=== PATIENT | male | born 1960 | race Caucasian/White ===

== ENCOUNTER 2018-09-06 12:25 | Inpatient (IN) | payer BC, MEDICAID ==
[2018-09-06] MEDS ORDERED: Albuterol/Ipratropium 3.0-0.5 MG/3 ML Neb Soln NEB ONE (13:22)
[2018-09-06] MEDS ORDERED: Sodium Chloride 0.9% 10 ML Syringe FLUSH PRN (13:25)
--- NOTE | 2018-09-06 13:32 | EDM.PDOC ---
ED HPI GENERAL MEDICAL PROBLEM - General Chief Complaint: Respiratory Problem Stated Complaint: COPD SENT BY CLINIC Time Seen by Provider: 09/06/18 13:27 Source of Information: Reports: Patient History Limitations: Reports: No Limitations - History of Present Illness INITIAL COMMENTS - FREE TEXT/NARRATIVE: 58-year-old male presents for evaluation and treatment shortness of breath. Patient states he has been feeling short of breath the last 6 weeks. Reports severe dyspnea on exertion. States that he lives in a camper and can hardly move to and from his camper without being short of breath. He reports associated symptoms of decreased energy and decreased appetite. States that he is not coughing much. He denies any fevers, chills, headaches and bodyaches. He states that he has appreciated swelling in the bilateral feet. He also reports some chest tightness but identifies the area more in the right upper quadrant of the abdomen. patient reports that he has a past medical history of COPD. It sounds that this is self diagnosis. Only on albuterol as needed for COPD. Sees Dr. Zambrano as a primary care provider but has seen him recently. Duration: Intermittent Feet Pain Score (Numeric/FACES): 5 - Related Data Allergies Allergy/AdvReac Type Severity Reaction Status Date / Time No Known Allergies Allergy Verified 09/06/18 12:38 Home Meds: Home Meds Albuterol Sulfate [Proair Hfa] 2 puff INH 6XDAY PRN 09/06/18 [History] Past Medical History Cardiovascular History: Reports: Hypertension Respiratory History: Reports: COPD, SOB Gastrointestinal History: Reports: None Genitourinary History: Reports: None Musculoskeletal History: Reports: Neck Pain, Chronic Neurological History: Reports: None Psychiatric History: Reports: None Endocrine/Metabolic History: Reports: None Hematologic History: Reports: None Immunologic History: Reports: None Oncologic (Cancer) History: Reports: None Dermatologic History: Reports: None - Infectious Disease History Infectious Disease History: Reports: None - Past Surgical History HEENT Surgical History: Reports: Oral Surgery Respiratory Surgical History: Reports: None Other Male Surgeries/Procedures: decrease in urine for past week Social & Family History - Family History Family Medical History: Noncontributory Respiratory: Reports: COPD Musculoskeletal: Reports: Muscular Dystrophy Neurological: Reports: Parkinson's Endocrine/Metabolic: Reports: Diabetes, type II - Tobacco Use Smoking Status *Q: Current Every Day Smoker Years of Tobacco use: 48 Packs/Tins Daily: 1 - Caffeine Use Caffeine Use: Reports: Coffee, Tea - Recreational Drug Use Recreational Drug Use: Yes Drug Use in Last 12 Months: No Recreational Drug Type: Reports: Cocaine, Marijuana/Hashish ED ROS GENERAL - Review of Systems Review Of Systems: See Below Constitutional: Reports: Fatigue. Denies: Fever, Chills Respiratory: Reports: Shortness of Breath. Denies: Cough, Sputum Cardiovascular: Reports: Chest Pain (Reports chest tightness), Dyspnea on Exertion, Edema GI/Abdominal: Denies: Nausea, Vomiting ED EXAM, GENERAL - Physical Exam Exam: See Below Exam Limited By: No Limitations General Appearance: Alert, WD/WN, No Apparent Distress, Other (Cyanosis appreciate the nose upon arrival) Nose: Other (Cyanosis appreciated) Throat/Mouth: Normal Inspection, Normal Lips, Normal Oropharynx, Normal Voice, No Airway Compromise, Other (Poor dentition) Neck: Normal Inspection Respiratory/Chest: Decreased Breath Sounds (throughout) Cardiovascular: No Murmur, Tachycardia Peripheral Pulses: 2+: Dorsalis Pedis (L), Dorsalis Pedis (R) GI/Abdominal: Normal Bowel Sounds, Soft, Non-Tender, Distended (Ascites present) Neurological: Alert, Oriented, Normal Cognition Psychiatric: Normal Affect, Normal Mood Skin Exam: Warm, Dry, Normal Color EKG INTERPRETATION EKG Date: 09/06/18 Time: 13:33 Rhythm: NSR Rate (Beats/Min): 95 Toxey: RAD-Right Toxey Deviation P-Wave: Present QRS: Normal ST-T: Normal QT: Normal EKG Interpretation Comments: NSR at 95 bpm. Left atrial enlargement. RAD (133 degrees). P wave inversion V1. Decreased voltage and precordial limb leads. T wave inversion II, III and AVF- can not rule out inferior wall ischemia. QTc is markedly prolonged. Reviewed by myself and Dr. Sahu. Course - Vital Signs Last Recorded V/S: Last Vital Signs Temp 98.4 F 09/06/18 20:00 Pulse 90 09/06/18 18:13 Resp 27 H 09/06/18 20:00 BP 128/110 H 09/06/18 20:00 Pulse Ox 92 L 09/06/18 20:06 - Orders/Labs/Meds Orders: Active Orders 24 hr Category Date Time Status RT Aerosol Therapy [RC] ASDIRECTED Care 09/06/18 13:22 Active Sodium Chloride 0.9% [Normal Saline] 1,000 ml Med 09/06/18 14:15 Active IV ASDIRECTED Sodium Chloride 0.9% [Normal Saline] 100 ml Med 09/06/18 14:15 Active IV ASDIRECTED Sodium Chloride 0.9% [Saline Flush] Med 09/06/18 13:25 Active 10 ml FLUSH ASDIRECTED PRN Peripheral IV Insertion Adult [OM.PC] Routine Oth 09/06/18 13:25 Ordered EKG 12 Lead [EK] Stat Ther 09/06/18 13:22 Ordered Medication Orders Albuterol (Proventil Neb Soln) 2.5 mg NEB Q2H PRN PRN Reason: Dyspnea Last Admin: 09/06/18 20:05 Dose: 2.5 mg Albuterol/Ipratropium (Duoneb 3.0-0.5 Mg/3 Ml) 3 ml NEB Q4HRRT [facility] Captopril (Capoten) 6.25 mg PO Q8H [facility] Last Admin: 09/06/18 19:37 Dose: 6.25 mg Enoxaparin Sodium (Lovenox) 40 mg SUBCUT DAILY [facility] Sodium Chloride (Normal Saline) 100 mls @ 60 mls/hr IV ASDIRECTED [facility] Last Admin: 09/06/18 14:26 Dose: 60 mls/hr Sodium Chloride (Normal Saline) 1,000 mls @ 100 mls/hr IV ASDIRECTED [facility] Last Admin: 09/06/18 14:36 Dose: 100 mls/hr Ceftriaxone Sodium 1 gm/ (Sodium Chloride) 100 mls @ 200 mls/hr IV Q24H [facility] Last Admin: 09/06/18 19:48 Dose: 200 mls/hr Melatonin (Melatonin) 6 mg PO BEDTIME PRN PRN Reason: Insomnia Miscellaneous Information (Remove Patch) 1 ea TRDERM DAILY [facility] Nicotine (Habitrol) 21 mg TRDERM DAILY [facility] Last Admin: 09/06/18 19:42 Dose: Not Given Ondansetron HCl (Zofran Odt) 4 mg PO Q4H PRN PRN Reason: nausea, able to take PO Sodium Chloride (Saline Flush) 10 ml FLUSH ASDIRECTED PRN PRN Reason: Keep Vein Open Last Admin: 09/06/18 13:59 Dose: 10 ml Labs: Laboratory Tests 09/06/18 09/06/18 09/06/18 Range/Units 12:40 12:40 12:40 WBC 14.44 H (4.23-9.07) K/mm3 RBC 6.59 H (4.63-6.08) M/mm3 Hgb 21.5 H (13.7-17.5) gm/L Hct 74 H (40.1-51.0) % MCV 103.3 H (79.0-92.2) fl MCH 32.6 H (25.7-32.2) pg MCHC 31.6 L (32.2-35.5) g/dl RDW Std Deviation 63.6 H (35.1-43.9) fL Plt Count 203 (163-337) K/mm3 MPV 11.7 (9.4-12.3) fl Neutrophils % (Manual) 61 H (40-60) % Band Neutrophils % 0 (0-10) % Lymphocytes % (Manual) 22 (20-40) % Atypical Lymphs % 0 % Monocytes % (Manual) 16 H (2-10) % Eosinophils % (Manual) 0 L (0.8-7.0) % Basophils % (Manual) 1 (0.2-1.2) Platelet Estimate Adequate Polychromasia 2+ moderate Anisocytosis 2+ moderate Macrocytosis 2+ moderate RBC Morph Comment Abnormal PT (9.5-12.1) SECONDS INR D-Dimer, Quantitative 1.61 H (0.19-0.50) mg/L Puncture Site ABG pH (7.35-7.45) ABG pCO2 (35.0-45.0) mmHg ABG pO2 (80.0-100.0) mmHg ABG HCO3 (22.0-26.0) meq/L ABG O2 Saturation (96.0-97.0) % ABG Base Excess (-2-2.0) Jose Angel Test O2 Delivery Device Oxygen Flow Rate FiO2 (21.00-100.00) % Sodium 143 (136-145) mEq/L Potassium 4.9 (3.5-5.1) mEq/L Chloride 102 (98-107) mEq/L Carbon Dioxide 32 (21-32) mEq/L Anion Gap 13.9 (5-15) BUN 21 H (7-18) mg/dL Creatinine 1.3 (0.7-1.3) mg/dL Est Cr Clr Drug Dosing 58.46 mL/min Estimated GFR (MDRD) 56 (>60) mL/min BUN/Creatinine Ratio 16.2 (14-18) Glucose 119 H (74-106) mg/dL Calcium 9.8 (8.5-10.1) mg/dL Iron (65-175) ug/dL TIBC (100-400) ug/dL % Saturation (20-55) % Transferrin (202-364) mg/dL Total Bilirubin 1.0 (0.2-1.0) mg/dL AST 38 H (15-37) U/L ALT 46 (16-63) U/L Alkaline Phosphatase 104 (46-116) U/L CK-MB (CK-2) 4.2 H (0-3.6) ng/ml Troponin I < 0.017 (0.00-0.056) ng/mL NT-Pro-B Natriuret Pep (0-125) pg/mL Total Protein 7.3 (6.4-8.2) g/dl Albumin 3.8 (3.4-5.0) g/dl Globulin 3.5 gm/dL Albumin/Globulin Ratio 1.1 (1-2) 09/06/18 09/06/18 09/06/18 Range/Units 12:40 12:40 13:49 WBC (4.23-9.07) K/mm3 RBC (4.63-6.08) M/mm3 Hgb (13.7-17.5) gm/L Hct (40.1-51.0) % MCV (79.0-92.2) fl MCH (25.7-32.2) pg MCHC (32.2-35.5) g/dl RDW Std Deviation (35.1-43.9) fL Plt Count (163-337) K/mm3 MPV (9.4-12.3) fl Neutrophils % (Manual) (40-60) % Band Neutrophils % (0-10) % Lymphocytes % (Manual) (20-40) % Atypical Lymphs % % Monocytes % (Manual) (2-10) % Eosinophils % (Manual) (0.8-7.0) % Basophils % (Manual) (0.2-1.2) Platelet Estimate Polychromasia Anisocytosis Macrocytosis RBC Morph Comment PT (9.5-12.1) SECONDS INR D-Dimer, Quantitative (0.19-0.50) mg/L Puncture Site Lt radial ABG pH 7.31 L (7.35-7.45) ABG pCO2 68.6 H (35.0-45.0) mmHg ABG pO2 54.0 L (80.0-100.0) mmHg ABG HCO3 33.8 H (22.0-26.0) meq/L ABG O2 Saturation 82.7 L (96.0-97.0) % ABG Base Excess 3.9 H (-2-2.0) Jose Angel Test Positive O2 Delivery Device Nasal cannula Oxygen Flow Rate 4.0 FiO2 0.00 L (21.00-100.00) % Sodium (136-145) mEq/L Potassium (3.5-5.1) mEq/L Chloride (98-107) mEq/L Carbon Dioxide (21-32) mEq/L Anion Gap (5-15) BUN (7-18) mg/dL Creatinine (0.7-1.3) mg/dL Est Cr Clr Drug Dosing mL/min Estimated GFR (MDRD) (>60) mL/min BUN/Creatinine Ratio (14-18) Glucose (74-106) mg/dL Calcium (8.5-10.1) mg/dL Iron 73 (65-175) ug/dL TIBC 443 H (100-400) ug/dL % Saturation 16 L (20-55) % Transferrin 354 (202-364) mg/dL Total Bilirubin (0.2-1.0) mg/dL AST (15-37) U/L ALT (16-63) U/L Alkaline Phosphatase (46-116) U/L CK-MB (CK-2) (0-3.6) ng/ml Troponin I (0.00-0.056) ng/mL NT-Pro-B Natriuret Pep 5029 H (0-125) pg/mL Total Protein (6.4-8.2) g/dl Albumin (3.4-5.0) g/dl Globulin gm/dL Albumin/Globulin Ratio (1-2) 09/06/18 Range/Units 14:09 WBC (4.23-9.07) K/mm3 RBC (4.63-6.08) M/mm3 Hgb (13.7-17.5) gm/L Hct (40.1-51.0) % MCV (79.0-92.2) fl MCH (25.7-32.2) pg MCHC (32.2-35.5) g/dl RDW Std Deviation (35.1-43.9) fL Plt Count (163-337) K/mm3 MPV (9.4-12.3) fl Neutrophils % (Manual) (40-60) % Band Neutrophils % (0-10) % Lymphocytes % (Manual) (20-40) % Atypical Lymphs % % Monocytes % (Manual) (2-10) % Eosinophils % (Manual) (0.8-7.0) % Basophils % (Manual) (0.2-1.2) Platelet Estimate Polychromasia Anisocytosis Macrocytosis RBC Morph Comment PT 16.6 H (9.5-12.1) SECONDS INR 1.54 D-Dimer, Quantitative (0.19-0.50) mg/L Puncture Site ABG pH (7.35-7.45) ABG pCO2 (35.0-45.0) mmHg ABG pO2 (80.0-100.0) mmHg ABG HCO3 (22.0-26.0) meq/L ABG O2 Saturation (96.0-97.0) % ABG Base Excess (-2-2.0) Jose Angel Test O2 Delivery Device Oxygen Flow Rate FiO2 (21.00-100.00) % Sodium (136-145) mEq/L Potassium (3.5-5.1) mEq/L Chloride (98-107) mEq/L Carbon Dioxide (21-32) mEq/L Anion Gap (5-15) BUN (7-18) mg/dL Creatinine (0.7-1.3) mg/dL Est Cr Clr Drug Dosing mL/min Estimated GFR (MDRD) (>60) mL/min BUN/Creatinine Ratio (14-18) Glucose (74-106) mg/dL Calcium (8.5-10.1) mg/dL Iron (65-175) ug/dL TIBC (100-400) ug/dL % Saturation (20-55) % Transferrin (202-364) mg/dL Total Bilirubin (0.2-1.0) mg/dL AST (15-37) U/L ALT (16-63) U/L Alkaline Phosphatase (46-116) U/L CK-MB (CK-2) (0-3.6) ng/ml Troponin I (0.00-0.056) ng/mL NT-Pro-B Natriuret Pep (0-125) pg/mL Total Protein (6.4-8.2) g/dl Albumin (3.4-5.0) g/dl Globulin gm/dL Albumin/Globulin Ratio (1-2) Meds: Medications Generic Name Dose Route Start Last Admin Trade Name Freq PRN Reason Stop Dose Admin Albuterol 2.5 mg 09/06/18 18:20 09/06/18 20:05 Proventil Neb Soln NEB 2.5 mg Q2H PRN Administration Dyspnea Albuterol/Ipratropium 3 ml 09/06/18 22:00 Duoneb 3.0-0.5 Mg/3 Ml NEB Q4HRRT [facility] Captopril 6.25 mg 09/06/18 18:30 09/06/18 19:37 Capoten PO 6.25 mg Q8H [facility] Administration Enoxaparin Sodium 40 mg 09/07/18 09:00 Lovenox SUBCUT DAILY [facility] Sodium Chloride 100 mls @ 60 mls/hr 09/06/18 14:15 09/06/18 14:26 Normal Saline IV 60 mls/hr ASDIRECTED [facility] Administration Sodium Chloride 1,000 mls @ 100 mls/hr 09/06/18 14:15 09/06/18 14:36 Normal Saline IV 100 mls/hr ASDIRECTED [facility] Administration Ceftriaxone Sodium 1 gm/ 100 mls @ 200 mls/hr 09/06/18 20:00 09/06/18 19:48 Sodium Chloride IV 200 mls/hr Q24H [facility] Administration Melatonin 6 mg 09/06/18 19:46 Melatonin PO BEDTIME PRN Insomnia Miscellaneous Information 1 ea 09/07/18 09:00 Remove Patch TRDERM DAILY [facility] Nicotine 21 mg 09/06/18 19:00 09/06/18 19:42 Habitrol TRDERM Not Given DAILY [facility] Ondansetron HCl 4 mg 09/06/18 18:15 Zofran Odt PO Q4H PRN nausea, able to take PO Sodium Chloride 10 ml 09/06/18 13:25 09/06/18 13:59 Saline Flush FLUSH 10 ml ASDIRECTED PRN Administration Keep Vein Open Discontinued Medications Generic Name Dose Route Start Last Admin Trade Name Freq PRN Reason Stop Dose Admin Albuterol/Ipratropium 3 ml 09/06/18 13:22 09/06/18 13:39 Duoneb 3.0-0.5 Mg/3 Ml NEB 09/06/18 13:23 3 ml ONETIME ONE Administration Ceftriaxone Sodium 1 gm 09/06/18 18:45 Rocephin IM Q24H [facility] Furosemide 40 mg 09/06/18 14:15 09/06/18 14:37 Lasix IVPUSH 09/06/18 14:16 40 mg NOW ONE Administration Iohexol 75 ml 09/06/18 14:06 09/06/18 14:26 Omnipaque IVPUSH 09/06/18 14:07 75 ml ONETIME ONE Administration Pneumococcal Polyvalent Vaccine 0.5 ml 09/06/18 17:48 09/06/18 19:45 Pneumovax 23 IM 09/06/18 17:49 Not Given .ONCE ONE Sodium Chloride 10 ml 09/06/18 14:06 09/06/18 14:26 Saline Flush FLUSH 09/06/18 14:07 10 ml ONETIME ONE Administration - Radiology Interpretation Free Text/Narrative:: Chest: Two views of the chest were obtained. Comparison: Prior chest CT study of 10/14/15 and chest x-ray 08/11/12. Areas of atelectasis are felt to be present within the right mid lung. Lungs are hyperinflated which are felt compatible with an element of emphysematous change. Equivocal small right-sided pleural effusion versus pleural thickening. Heart is slightly enlarged. Tortuous thoracic aorta is seen. Impression: 1. Probable atelectasis within the right mid lung. 2. Emphysematous change. 3. Other findings which are most likely incidental as described above. CT chest Technique: Multiple axial sections through the chest were obtained. Intravenous contrast was utilized. Study has been performed as a pulmonary angiogram protocol. Findings: Small filling defects are seen on the axial view within the distal right main pulmonary artery and adjacent segmental branch. This is believed to be artifact as these are poorly seen on other projections. No filling defects are seen to indicate pulmonary embolism. Mediastinum and hilar region show no adenopathy or mass. Ascending aorta is slightly aneurysmal at 3.9 cm. Very small pericardial effusion is seen. Small right sided pleural effusion is seen. Right ventricle appears somewhat prominent in size as well as right atria. Difficult to exclude elevated right heart pressures. Main pulmonary arteries are also slightly prominent in size. Bullous change is noted within both lower lungs, worse on the left side. Scattered areas of parenchymal change is noted within the right upper and right lower lung as well as left base most likely due to areas of scarring. Slight fibrosis is noted within the right lung base. Impression: 1. Slightly prominent size of the main pulmonary arteries as well as right heart raising the possibility of elevated right heart pressures. Etiology not seen. 2. No definite findings of pulmonary embolism. 3. Bullous change within both lower lungs with scattered areas of scarring within the right upper and right lower lung and left lung base. 4. Small pericardial effusion. - Re-Assessments/Exams Free Text/Narrative Re-Assessment/Exam: 09/06/18 16:19 Patient's oxygen sats upon arrival in the ER were 66% on room air. Placed on nasal cannula 4 L and his oxygen sats have been in the low 90s with this. Case discussed with Dr. Sahu who recommended starting NS at 100 mils per hour with 40 IV Lasix for heart failure. Recommend discussing the case with hematology on-call to his severely elevated hemoglobin and hematocrit Spoke with Dr. Lafleur, radiologic technologist chief/oncologist [facility] in [place]. Recommended hydrating the gentleman as much as we are able to. Recommend a liter over a few hours and rechecking the CBC after that. Dr. Lafleur states we could consider phlebotomy at that time if still elevated. States that he is hesitant to recommend phlebotomy as we do not know the cause of the elevated hemoglobin and hematocrit is unknown at this time. Recommended checking iron levels to rule out hemochromatosis. Spoke with Dr. Sales, hospitalist on-call. He agrees to the admission. The patient will be admitted to the ICU. Diagnosis of congestive heart failure and elevated hemoglobin. Departure - Departure Time of Disposition: 16:15 Disposition: Admitted As Inpatient 64 Condition: Serious Clinical Impression: Congestive heart failure, Pleural effusion, Elevated hemoglobin, Elevated hematocrit, Hypoxia - Discharge Information *PRESCRIPTION DRUG MONITORING PROGRAM REVIEWED*: No *COPY OF PRESCRIPTION DRUG MONITORING REPORT IN PATIENT LAKSHMI: No - My Orders Last 24 Hours: My Active Orders 09/06/18 13:22 RT Aerosol Therapy [RC] ASDIRECTED EKG 12 Lead [EK] Stat 09/06/18 13:25 Sodium Chloride 0.9% [Saline Flush] 10 ml FLUSH ASDIRECTED PRN Peripheral IV Insertion Adult [OM.PC] Routine 09/06/18 14:15 Sodium Chloride 0.9% [Normal Saline] 1,000 ml IV ASDIRECTED Sodium Chloride 0.9% [Normal Saline] 100 ml IV ASDIRECTED - Assessment/Plan Last 24 Hours: My Active Orders 09/06/18 13:22 RT Aerosol Therapy [RC] ASDIRECTED EKG 12 Lead [EK] Stat 09/06/18 13:25 Sodium Chloride 0.9% [Saline Flush] 10 ml FLUSH ASDIRECTED PRN Peripheral IV Insertion Adult [OM.PC] Routine 09/06/18 14:15 Sodium Chloride 0.9% [Normal Saline] 1,000 ml IV ASDIRECTED Sodium Chloride 0.9% [Normal Saline] 100 ml IV ASDIRECTED
[2018-09-06] MEDS ORDERED: Iohexol 350 MG/ML 75 ML Bottle IVPUSH ONE (14:06)
[2018-09-06] MEDS ORDERED: Sodium Chloride 0.9% 10 ML Syringe FLUSH ONE (14:06)
[2018-09-06] MEDS ORDERED: Sodium Chloride 0.9% 100 ML IV SCH (14:15)
[2018-09-06] MEDS ORDERED: Sodium Chloride 0.9% 1,000 ML IV SCH (14:15)
[2018-09-06] MEDS ORDERED: Furosemide 40 MG/4 ML VIAL IVPUSH ONE (14:15)
--- NOTE | 2018-09-06 14:16 | CR ---
Chest: Two views of the chest were obtained. Comparison: Prior chest CT study of 10/14/15 and chest x-ray 08/11/12. Areas of atelectasis are felt to be present within the right mid lung. Lungs are hyperinflated which are felt compatible with an element of emphysematous change. Equivocal small right-sided pleural effusion versus pleural thickening. Heart is slightly enlarged. Tortuous thoracic aorta is seen. Impression: 1. Probable atelectasis within the right mid lung. 2. Emphysematous change. 3. Other findings which are most likely incidental as described above. Diagnostic code #3
--- NOTE | 2018-09-06 14:59 | CT ---
CT chest Technique: Multiple axial sections through the chest were obtained. Intravenous contrast was utilized. Study has been performed as a pulmonary angiogram protocol. Findings: Small filling defects are seen on the axial view within the distal right main pulmonary artery and adjacent segmental branch. This is believed to be artifact as these are poorly seen on other projections. No filling defects are seen to indicate pulmonary embolism. Mediastinum and hilar region show no adenopathy or mass. Ascending aorta is slightly aneurysmal at 3.9 cm. Very small pericardial effusion is seen. Small right sided pleural effusion is seen. Right ventricle appears somewhat prominent in size as well as right atria. Difficult to exclude elevated right heart pressures. Main pulmonary arteries are also slightly prominent in size. Bullous change is noted within both lower lungs, worse on the left side. Scattered areas of parenchymal change is noted within the right upper and right lower lung as well as left base most likely due to areas of scarring. Slight fibrosis is noted within the right lung base. Impression: 1. Slightly prominent size of the main pulmonary arteries as well as right heart raising the possibility of elevated right heart pressures. Etiology not seen. 2. No definite findings of pulmonary embolism. 3. Bullous change within both lower lungs with scattered areas of scarring within the right upper and right lower lung and left lung base. 4. Small pericardial effusion. Diagnostic code #3
[2018-09-06] MEDS ORDERED: Pneumococcal Polyvalent-23 Vaccine 0.5 ML SDV IM ONE (17:48)
[2018-09-06] MEDS ORDERED: Ondansetron 4 MG Tab.DIS PO PRN (18:15)
[2018-09-06] MEDS ORDERED: Albuterol 0.083% 2.5 MG/3 ML Neb Soln NEB PRN (18:20)
[2018-09-06] MEDS ORDERED: cefTRIAXone 1 GM Vial IM SCH (18:45)
[2018-09-06] MEDS: Nicotine 21 MG/24 Hr Patch TRDERM SCH (19:42)
[2018-09-06] MEDS: cefTRIAXone 1 GM in Sodium Chloride 0.9% 100 ML IV SCH (19:48)
--- NOTE | 2018-09-06 19:49 | PCM.HP ---
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 Patient states over the past 6 weeks he has had worsening shortness of breath and had difficulty even walking across the room to go to the bathroom. 2 weeks ago he developed right lower extremity edema and then it worsened to the left over the last 2 days. He has orthopnea but denies PND. He states that this episode really started back at [place]. He complains of productive light brown sputum. He denies any fever or chills. Denies any chest pain. He has an approximate [id number] history of tobacco. He lives in a camper. He drinks alcohol from one beer to 6 beers a day. Last alcohol intake was 2 days ago. He is seen by Dr. Zambrano, but last visit was over 2 years ago. He states he has been getting albuterol nebulizer solution and uses it in the evening. He uses Primatene and albuterol HFA for rescue. In the emergency room patient was given a nebulizer of albuterol and ipratropium bromide. Patient did seem to have some improvement. Lab work was performed and he was found to be severely polycythemic with a hemoglobin of 21.5. D-dimer was elevated at 1.67. Creatinine was 1.3 and BUN was 21. Otherwise normal electrolytes. AST was 38, ALT 46, alkaline phosphatase of 104, total bilirubin 1.0, troponin less than 0.017. BNP was elevated at 5029. Total iron binding capacity was slightly elevated at 443 with percent saturation of 16. ABG: PH 7.31, PCO2 68.6, PO2 54.0, HCO3 33.8, base excess 3.9 on 4 L nasal cannula Patient was initially given Lasix secondary to the elevated BNP, then he was started on normal saline at the suggestion of hematology. Concern was that if he does not have a decrease in his hemoglobin with adequate fluids he could have thrombotic complications. If hemoglobin does not decrease he may need phlebotomy per hematology. Onset of Symptoms: Reports: Gradual Feet Pain Score (Numeric/FACES): 5 - Related Data Allergies/Adverse Reactions: Allergies Allergy/AdvReac Type Severity Reaction Status Date / Time No Known Allergies Allergy Verified 09/06/18 12:38 Home Medications: Home Meds Albuterol Sulfate [Proair Hfa] 2 puff INH 6XDAY PRN 09/06/18 [History] Past Medical History Cardiovascular History: Reports: Hypertension Respiratory History: Reports: COPD, SOB Gastrointestinal History: Reports: None Genitourinary History: Reports: None Musculoskeletal History: Reports: Neck Pain, Chronic Neurological History: Reports: None Psychiatric History: Reports: None Endocrine/Metabolic History: Reports: None Hematologic History: Reports: None Immunologic History: Reports: None Oncologic (Cancer) History: Reports: None Dermatologic History: Reports: None - Infectious Disease History Infectious Disease History: Reports: None - Past Surgical History HEENT Surgical History: Reports: Oral Surgery Respiratory Surgical History: Reports: None Other Male Surgeries/Procedures: decrease in urine for past week Social & Family History - Family History Family Medical History: Noncontributory Respiratory: Reports: COPD Musculoskeletal: Reports: Muscular Dystrophy Neurological: Reports: Parkinson's Endocrine/Metabolic: Reports: Diabetes, type II - Tobacco Use Smoking Status *Q: Current Every Day Smoker Years of Tobacco use: 48 Packs/Tins Daily: 1 Used Tobacco, but Quit: No Tobacco Use Comment: okay with nicotine patch Second Hand Smoke Exposure: No - Caffeine Use Caffeine Use: Reports: Coffee, Tea - Alcohol Use Days Per Week of Alcohol Use: 7 Number of Drinks Per Day: 6 Total Drinks Per Week: 42 Date of Last Drink: 09/04/18 Time of Last Drink: 20:00 - Recreational Drug Use Recreational Drug Use: Yes Drug Use in Last 12 Months: No Recreational Drug Type: Reports: Cocaine, Marijuana/Hashish H&P Review of Systems - Review of Systems: Review Of Systems: ROS reveals no pertinent complaints other than HPI. Exam - Exam Exam: See Below - Vital Signs Vital Signs: Last Vital Signs Temp 97.2 F 09/06/18 18:13 Pulse 90 09/06/18 18:13 Resp 19 09/06/18 18:13 BP 136/111 H 09/06/18 19:37 Pulse Ox 94 L 09/06/18 18:49 Weight: 170 lb 12.8 oz - Exam Quality Assessment: Supplemental Oxygen General: Alert, Oriented HEENT: Conjunctiva Clear, EOMI, Hearing Intact, Mucosa Moist & Blende Neck: Supple, Trachea Midline Lungs: Decreased Breath Sounds, Other (Increased respiratory effort with increased respiratory rate). No: Rhonchi, Wheezing Cardiovascular: Regular Rate, Regular Rhythm GI/Abdominal Exam: Normal Bowel Sounds, Soft, Distended, Tender. No: Guarding, Rigid, Rebound Back Exam: Normal Inspection Extremities: Pedal Edema (Mild erythema the right foot with bilateral pedal edema extending up to mid calf) Skin: Warm, Dry Neurological: Cranial Nerves Intact Neuro Extensive - Mental Status: Alert, Oriented x3, Normal Mood/Affect Neuro Extensive - Motor, Sensory, Reflexes: CN II-XII Intact. No: Dysarthria Psychiatric: Alert, Normal Affect, Normal Mood - Patient Data Lab Results Last 24 hrs: Laboratory Results - last 24 hr 09/06/18 09/06/18 09/06/18 Range/Units 12:40 12:40 12:40 WBC 14.44 H (4.23-9.07) K/mm3 RBC 6.59 H (4.63-6.08) M/mm3 Hgb 21.5 H (13.7-17.5) gm/L Hct 74 H (40.1-51.0) % MCV 103.3 H (79.0-92.2) fl MCH 32.6 H (25.7-32.2) pg MCHC 31.6 L (32.2-35.5) g/dl RDW Std Deviation 63.6 H (35.1-43.9) fL Plt Count 203 (163-337) K/mm3 MPV 11.7 (9.4-12.3) fl Neut % (Auto) (34.0-67.9) % Lymph % (Auto) (21.8-53.1) % [place] % (Auto) (5.3-12.2) % Eos % (Auto) (0.8-7.0) Baso % (Auto) (0.1-1.2) % Neut # (Auto) (1.78-5.38) K/mm3 Lymph # (Auto) (1.32-3.57) K/mm3 [place] # (Auto) (0.30-0.82) K/mm3 Eos # (Auto) (0.04-0.54) K/mm3 Baso # (Auto) (0.01-0.08) K/mm3 Neutrophils % (Manual) 61 H (40-60) % Band Neutrophils % 0 (0-10) % Lymphocytes % (Manual) 22 (20-40) % Atypical Lymphs % 0 % Monocytes % (Manual) 16 H (2-10) % Eosinophils % (Manual) 0 L (0.8-7.0) % Basophils % (Manual) 1 (0.2-1.2) Platelet Estimate Adequate Polychromasia 2+ moderate Anisocytosis 2+ moderate Macrocytosis 2+ moderate RBC Morph Comment Abnormal PT (9.5-12.1) SECONDS INR D-Dimer, Quantitative 1.61 H (0.19-0.50) mg/L Puncture Site ABG pH (7.35-7.45) ABG pCO2 (35.0-45.0) mmHg ABG pO2 (80.0-100.0) mmHg ABG HCO3 (22.0-26.0) meq/L ABG O2 Saturation (96.0-97.0) % ABG Base Excess (-2-2.0) Jose Angel Test O2 Delivery Device Oxygen Flow Rate FiO2 (21.00-100.00) % Sodium 143 (136-145) mEq/L Potassium 4.9 (3.5-5.1) mEq/L Chloride 102 (98-107) mEq/L Carbon Dioxide 32 (21-32) mEq/L Anion Gap 13.9 (5-15) BUN 21 H (7-18) mg/dL Creatinine 1.3 (0.7-1.3) mg/dL Est Cr Clr Drug Dosing 58.46 mL/min Estimated GFR (MDRD) 56 (>60) mL/min BUN/Creatinine Ratio 16.2 (14-18) Glucose 119 H (74-106) mg/dL Calcium 9.8 (8.5-10.1) mg/dL Iron (65-175) ug/dL TIBC (100-400) ug/dL % Saturation (20-55) % Transferrin (202-364) mg/dL Total Bilirubin 1.0 (0.2-1.0) mg/dL AST 38 H (15-37) U/L ALT 46 (16-63) U/L Alkaline Phosphatase 104 (46-116) U/L CK-MB (CK-2) 4.2 H (0-3.6) ng/ml Troponin I < 0.017 (0.00-0.056) ng/mL NT-Pro-B Natriuret Pep (0-125) pg/mL Total Protein 7.3 (6.4-8.2) g/dl Albumin 3.8 (3.4-5.0) g/dl Globulin 3.5 gm/dL Albumin/Globulin Ratio 1.1 (1-2) 09/06/18 09/06/18 09/06/18 Range/Units 12:40 12:40 13:49 WBC (4.23-9.07) K/mm3 RBC (4.63-6.08) M/mm3 Hgb (13.7-17.5) gm/L Hct (40.1-51.0) % MCV (79.0-92.2) fl MCH (25.7-32.2) pg MCHC (32.2-35.5) g/dl RDW Std Deviation (35.1-43.9) fL Plt Count (163-337) K/mm3 MPV (9.4-12.3) fl Neut % (Auto) (34.0-67.9) % Lymph % (Auto) (21.8-53.1) % [place] % (Auto) (5.3-12.2) % Eos % (Auto) (0.8-7.0) Baso % (Auto) (0.1-1.2) % Neut # (Auto) (1.78-5.38) K/mm3 Lymph # (Auto) (1.32-3.57) K/mm3 [place] # (Auto) (0.30-0.82) K/mm3 Eos # (Auto) (0.04-0.54) K/mm3 Baso # (Auto) (0.01-0.08) K/mm3 Neutrophils % (Manual) (40-60) % Band Neutrophils % (0-10) % Lymphocytes % (Manual) (20-40) % Atypical Lymphs % % Monocytes % (Manual) (2-10) % Eosinophils % (Manual) (0.8-7.0) % Basophils % (Manual) (0.2-1.2) Platelet Estimate Polychromasia Anisocytosis Macrocytosis RBC Morph Comment PT (9.5-12.1) SECONDS INR D-Dimer, Quantitative (0.19-0.50) mg/L Puncture Site Lt radial ABG pH 7.31 L (7.35-7.45) ABG pCO2 68.6 H (35.0-45.0) mmHg ABG pO2 54.0 L (80.0-100.0) mmHg ABG HCO3 33.8 H (22.0-26.0) meq/L ABG O2 Saturation 82.7 L (96.0-97.0) % ABG Base Excess 3.9 H (-2-2.0) Jose Angel Test Positive O2 Delivery Device Nasal cannula Oxygen Flow Rate 4.0 FiO2 0.00 L (21.00-100.00) % Sodium (136-145) mEq/L Potassium (3.5-5.1) mEq/L Chloride (98-107) mEq/L Carbon Dioxide (21-32) mEq/L Anion Gap (5-15) BUN (7-18) mg/dL Creatinine (0.7-1.3) mg/dL Est Cr Clr Drug Dosing mL/min Estimated GFR (MDRD) (>60) mL/min BUN/Creatinine Ratio (14-18) Glucose (74-106) mg/dL Calcium (8.5-10.1) mg/dL Iron 73 (65-175) ug/dL TIBC 443 H (100-400) ug/dL % Saturation 16 L (20-55) % Transferrin 354 (202-364) mg/dL Total Bilirubin (0.2-1.0) mg/dL AST (15-37) U/L ALT (16-63) U/L Alkaline Phosphatase (46-116) U/L CK-MB (CK-2) (0-3.6) ng/ml Troponin I (0.00-0.056) ng/mL NT-Pro-B Natriuret Pep 5029 H (0-125) pg/mL Total Protein (6.4-8.2) g/dl Albumin (3.4-5.0) g/dl Globulin gm/dL Albumin/Globulin Ratio (1-2) 09/06/18 09/06/18 Range/Units 14:09 19:05 WBC 11.94 H (4.23-9.07) K/mm3 RBC 6.51 H (4.63-6.08) M/mm3 Hgb 21.4 H (13.7-17.5) gm/L Hct 72.2 H (40.1-51.0) % MCV 102.8 H (79.0-92.2) fl MCH 32.9 H (25.7-32.2) pg MCHC 29.6 L (32.2-35.5) g/dl RDW Std Deviation 63.5 H (35.1-43.9) fL Plt Count 155 L (163-337) K/mm3 MPV 11.0 (9.4-12.3) fl Neut % (Auto) 68.1 H (34.0-67.9) % Lymph % (Auto) 18.3 L (21.8-53.1) % [place] % (Auto) 12.6 H (5.3-12.2) % Eos % (Auto) 0.4 L (0.8-7.0) Baso % (Auto) 0.3 (0.1-1.2) % Neut # (Auto) 8.13 H (1.78-5.38) K/mm3 Lymph # (Auto) 2.19 (1.32-3.57) K/mm3 [place] # (Auto) 1.50 H (0.30-0.82) K/mm3 Eos # (Auto) 0.05 (0.04-0.54) K/mm3 Baso # (Auto) 0.04 (0.01-0.08) K/mm3 Neutrophils % (Manual) (40-60) % Band Neutrophils % (0-10) % Lymphocytes % (Manual) (20-40) % Atypical Lymphs % % Monocytes % (Manual) (2-10) % Eosinophils % (Manual) (0.8-7.0) % Basophils % (Manual) (0.2-1.2) Platelet Estimate Polychromasia Anisocytosis Macrocytosis RBC Morph Comment PT 16.6 H (9.5-12.1) SECONDS INR 1.54 D-Dimer, Quantitative (0.19-0.50) mg/L Puncture Site ABG pH (7.35-7.45) ABG pCO2 (35.0-45.0) mmHg ABG pO2 (80.0-100.0) mmHg ABG HCO3 (22.0-26.0) meq/L ABG O2 Saturation (96.0-97.0) % ABG Base Excess (-2-2.0) Jose Angel Test O2 Delivery Device Oxygen Flow Rate FiO2 (21.00-100.00) % Sodium (136-145) mEq/L Potassium (3.5-5.1) mEq/L Chloride (98-107) mEq/L Carbon Dioxide (21-32) mEq/L Anion Gap (5-15) BUN (7-18) mg/dL Creatinine (0.7-1.3) mg/dL Est Cr Clr Drug Dosing mL/min Estimated GFR (MDRD) (>60) mL/min BUN/Creatinine Ratio (14-18) Glucose (74-106) mg/dL Calcium (8.5-10.1) mg/dL Iron (65-175) ug/dL TIBC (100-400) ug/dL % Saturation (20-55) % Transferrin (202-364) mg/dL Total Bilirubin (0.2-1.0) mg/dL AST (15-37) U/L ALT (16-63) U/L Alkaline Phosphatase (46-116) U/L CK-MB (CK-2) (0-3.6) ng/ml Troponin I (0.00-0.056) ng/mL NT-Pro-B Natriuret Pep (0-125) pg/mL Total Protein (6.4-8.2) g/dl Albumin (3.4-5.0) g/dl Globulin gm/dL Albumin/Globulin Ratio (1-2) Result Diagrams: 09/06/18 19:05 09/06/18 12:40 - Problem List (1) Respiratory failure with hypoxia and hypercapnia SNOMED Code(s): 04851618 ICD Code: J96.91 - RESPIRATORY FAILURE, UNSPECIFIED WITH HYPOXIA; J96.92 - RESPIRATORY FAILURE, UNSPECIFIED WITH HYPERCAPNIA Status: Acute Current Visit: Yes (2) Respiratory acidosis SNOMED Code(s): 23280778 ICD Code: E87.2 - ACIDOSIS Status: Acute Current Visit: Yes (3) HTN (hypertension) SNOMED Code(s): 71046287 ICD Code: I10 - ESSENTIAL (PRIMARY) HYPERTENSION Status: Acute Current Visit: Yes (4) CHF (congestive heart failure) SNOMED Code(s): 26407833 ICD Code: I50.9 - HEART FAILURE, UNSPECIFIED Status: Acute Current Visit : Yes (5) COPD exacerbation SNOMED Code(s): 372933079 ICD Code: J44.1 - CHRONIC OBSTRUCTIVE PULMONARY DISEASE W (ACUTE) EXACERBATION Status: Acute Current Visit: Yes (6) Polycythemia SNOMED Code(s): 733356230 ICD Code: D75.1 - SECONDARY POLYCYTHEMIA Status: Acute Current Visit: Yes Problem List Initiated/Reviewed/Updated: Yes Orders Last 24hrs: Active Orders 24 hr Category Date Time Status Admission Status [Patient Status] [ADT] Routine ADT 09/06/18 16:21 Active Ambulate [RC] PER UNIT ROUTINE Care 09/06/18 18:16 Active Antiembolic Devices [RC] PER UNIT ROUTINE Care 09/06/18 18:16 Active Height and Weight [RC] 0400 Care 09/06/18 18:13 Active Intake and Output [RC] 04,16 Care 09/06/18 18:14 Active Oxygen Therapy [RC] PRN Care 09/06/18 18:15 Active RT Aerosol Therapy [RC] ASDIRECTED Care 09/06/18 13:22 Active RT Aerosol Therapy [RC] ASDIRECTED Care 09/06/18 18:20 Active RT BiPAP/CPAP [RC] ASDIRECTED Care 09/06/18 18:18 Active Up ad Janiya [RC] ASDIRECTED Care 09/06/18 18:13 Active VTE/DVT Education [RC] PER UNIT ROUTINE Care 09/06/18 18:13 Active Heart Healthy Diet [DIET] Diet 09/06/18 Dinner Active Heart Healthy Diet [DIET] Diet 09/07/18 Breakfast Active Abdomen Comp [US] Routine Exams 09/07/18 08:00 Ordered Echo Comp wo Cont [US] Routine Exams 09/06/18 19:44 Ordered CBC WITH AUTO DIFF [HEME] Stat Lab 09/06/18 19:05 Results Albuterol [Proventil Neb Soln] Med 09/06/18 18:20 Active 2.5 mg NEB Q2H PRN Albuterol/Ipratropium [DuoNeb 3.0-0.5 MG/3 ML] Med 09/06/18 22:00 Active 3 ml NEB Q4HRRT Captopril [Capoten] Med 09/06/18 18:30 Active 6.25 mg PO Q8H Enoxaparin [Lovenox] Med 09/07/18 09:00 Active 40 mg SUBCUT DAILY Melatonin Med 09/06/18 19:46 Active 6 mg PO BEDTIME PRN Nicotine [Habitrol] Med 09/06/18 19:00 Active 21 mg TRDERM DAILY Ondansetron [Zofran ODT] Med 09/06/18 18:15 Active 4 mg PO Q4H PRN Remove Patch Med 09/07/18 09:00 Active 1 ea TRDERM DAILY Sodium Chloride 0.9% [Normal Saline] 1,000 ml Med 09/06/18 14:15 Active IV ASDIRECTED Sodium Chloride 0.9% [Normal Saline] 100 ml Med 09/06/18 14:15 Active IV ASDIRECTED Sodium Chloride 0.9% [Saline Flush] Med 09/06/18 13:25 Active 10 ml FLUSH ASDIRECTED PRN cefTRIAXone [Rocephin] 1 gm Med 09/06/18 20:00 Active Sodium Chloride 0.9% [Normal Saline] 100 ml IV Q24H Antiembolic Hose [OM.PC] Per Unit Routine Oth 09/06/18 18:16 Ordered Peripheral IV Insertion Adult [OM.PC] Routine Oth 09/06/18 13:25 Ordered Resuscitation Status Routine Resus Stat 09/06/18 18:13 Ordered EKG 12 Lead [EK] Stat Ther 09/06/18 13:22 Ordered Medication Orders Albuterol (Proventil Neb Soln) 2.5 mg NEB Q2H PRN PRN Reason: Dyspnea Albuterol/Ipratropium (Duoneb 3.0-0.5 Mg/3 Ml) 3 ml NEB Q4HRRT RUSTY Captopril (Capoten) 6.25 mg PO Q8H RUSTY Last Admin: 09/06/18 19:37 Dose: 6.25 mg Enoxaparin Sodium (Lovenox) 40 mg SUBCUT DAILY RUSTY Sodium Chloride (Normal Saline) 100 mls @ 60 mls/hr IV ASDIRECTED RUSTY Last Admin: 09/06/18 14:26 Dose: 60 mls/hr Sodium Chloride (Normal Saline) 1,000 mls @ 100 mls/hr IV ASDIRECTED RUSTY Last Admin: 09/06/18 14:36 Dose: 100 mls/hr Ceftriaxone Sodium 1 gm/ (Sodium Chloride) 100 mls @ 200 mls/hr IV Q24H [facility] Melatonin (Melatonin) 6 mg PO BEDTIME PRN PRN Reason: Insomnia Miscellaneous Information (Remove Patch) 1 ea TRDERM DAILY [facility] Nicotine (Habitrol) 21 mg TRDERM DAILY [facility] Last Admin: 09/06/18 19:42 Dose: Not Given Ondansetron HCl (Zofran Odt) 4 mg PO Q4H PRN PRN Reason: nausea, able to take PO Sodium Chloride (Saline Flush) 10 ml FLUSH ASDIRECTED PRN PRN Reason: Keep Vein Open Last Admin: 09/06/18 13:59 Dose: 10 ml Assessment/Plan Comment:: Respiratory failure with hypoxia and hypercarbia and respiratory acidosis * Start BiPAP-respiratory to titrate * Albuterol and ipratropium bromide nebulizer every 4 hours * Albuterol nebulizer every 2 hours when necessary * ABG in the morning CHF * Likely right heart failure secondary to pulmonary hypertension * Unfortunately, diuresis will be difficult secondary to his polycythemia. * We will correct his respiratory failure and recheck in the morning. * Captopril 6.25 mg 3 times a day * Echocardiogram in the morning Polycythemia * Follow CBC in the morning. * Get abdominal ultrasound and extremity Dopplers. * May need therapeutic phlebotomy COPD exacerbation * See above * Start Rocephin 1 g IV every 24 hours Hypertension * Captopril 6.25 mg 3 times a day * See above Tobaccoism * Start nicotine patch Alcohol use * Follow closely in the ICU for withdrawal symptoms Consult discharge planning CODE STATUS: Full code
[2018-09-06] MEDS: Albuterol/Ipratropium 3.0-0.5 MG/3 ML Neb Soln NEB SCH (22:06)
[2018-09-06] MEDS: Sodium Chloride 0.9% 1,000 ML IV SCH (22:41)
[2018-09-06] MEDS: Melatonin 3 MG Tab PO PRN (23:20)
[2018-09-07] MEDS: Albuterol/Ipratropium 3.0-0.5 MG/3 ML Neb Soln NEB SCH ×5 (04:31→20:46)
[2018-09-07] MEDS: Acetaminophen 325 MG Tab PO PRN ×2 (05:56→19:26)
[2018-09-07] MEDS ORDERED: Magnesium Sulfate/Water 2 GM in Premix Bag 1 BAG IV ONE (07:17)
[2018-09-07] MEDS: Enoxaparin 40 MG/0.4 ML Syringe SUBCUT SCH (08:19)
[2018-09-07] MEDS: Nicotine 21 MG/24 Hr Patch TRDERM SCH (08:23)
[2018-09-07] MEDS: methylPREDNISolone Sodium Succinate 40 MG/1 ML SDV IVPUSH SCH ×3 (12:09→23:45)
--- NOTE | 2018-09-07 12:36 | US ---
Bilateral lower extremity deep venous ultrasound: Duplex and color flow imaging was obtained of the right and left common femoral, proximal greater saphenous, superficial femoral, popliteal, posterior tibial and peroneal veins. Findings: Normal phasic flow, augmentation and compression are seen. Slight venous aneurysm is seen within the popliteal region. This finding measures about 1.2 cm in size and is believed to be incidental. Impression: 1. 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 2. No evidence of venous thrombosis within the right or left lower extremities. Diagnostic code #3
--- NOTE | 2018-09-07 12:50 | PCM.PN ---
- General Info Date of Service: 09/07/18 Admission Dx/Problem (Free Text): Admission Diagnosis/Problem Admission Diagnosis/Problem Exacerbation of chronic obstructive pulmonary disease Subjective Update: Patient tolerated his BiPAP overnight. He had a significant improvement in his BNP trapping from approximate 5000 to approximately 2400. Blood gas improved just marginally to a pH of 7.33. He continues to receive DuoNeb every 4 hours. Hemoglobin has decreased 19.5. He continues on 50 mL per hour of normal saline Functional Status: Reports: Pain Controlled - Review of Systems General: Reports: No Symptoms. Denies: Fever, Weakness HEENT: Reports: No Symptoms. Denies: Dysphasia, Visual Changes Pulmonary: Reports: Shortness of Breath. Denies: Pleuritic Chest Pain, Wheezing Cardiovascular: Reports: Dyspnea on Exertion, Edema. Denies: Chest Pain, Palpitations Gastrointestinal: Reports: No Symptoms. Denies: Abdominal Pain Psychiatric: Reports: No Symptoms. Denies: Confusion, Depression - Patient Data Vitals - Most Recent: Last Vital Signs Temp 98.7 F 09/07/18 12:00 Pulse 69 09/07/18 12:00 Resp 18 09/07/18 12:00 BP 101/74 09/07/18 12:00 Pulse Ox 92 L 09/07/18 12:00 Weight - Most Recent: 176 lb 8 oz I&O - Last 24 Hours: Intake & Output 09/06/18 09/07/18 09/07/18 22:59 06:59 14:59 Intake Total 820 1460 120 Output Total 2750 400 Balance -1930 1060 120 Lab Results Last 24 Hours: Laboratory Results - last 24 hr 09/06/18 09/06/18 09/06/18 Range/Units 12:40 12:40 12:40 WBC 14.44 H (4.23-9.07) K/mm3 RBC 6.59 H (4.63-6.08) M/mm3 Hgb 21.5 H (13.7-17.5) gm/L Hct 74 H (40.1-51.0) % MCV 103.3 H (79.0-92.2) fl MCH 32.6 H (25.7-32.2) pg MCHC 31.6 L (32.2-35.5) g/dl RDW Std Deviation 63.6 H (35.1-43.9) fL Plt Count 203 (163-337) K/mm3 MPV 11.7 (9.4-12.3) fl Neut % (Auto) (34.0-67.9) % Lymph % (Auto) (21.8-53.1) % [place] % (Auto) (5.3-12.2) % Eos % (Auto) (0.8-7.0) Baso % (Auto) (0.1-1.2) % Neut # (Auto) (1.78-5.38) K/mm3 Lymph # (Auto) (1.32-3.57) K/mm3 [place] # (Auto) (0.30-0.82) K/mm3 Eos # (Auto) (0.04-0.54) K/mm3 Baso # (Auto) (0.01-0.08) K/mm3 Neutrophils % (Manual) 61 H (40-60) % Band Neutrophils % 0 (0-10) % Lymphocytes % (Manual) 22 (20-40) % Atypical Lymphs % 0 % Monocytes % (Manual) 16 H (2-10) % Eosinophils % (Manual) 0 L (0.8-7.0) % Basophils % (Manual) 1 (0.2-1.2) Manual Slide Review Platelet Estimate Adequate Polychromasia 2+ moderate Anisocytosis 2+ moderate Macrocytosis 2+ moderate RBC Morph Comment Abnormal PT (9.5-12.1) SECONDS INR D-Dimer, Quantitative 1.61 H (0.19-0.50) mg/L Puncture Site ABG pH (7.35-7.45) ABG pCO2 (35.0-45.0) mmHg ABG pO2 (80.0-100.0) mmHg ABG HCO3 (22.0-26.0) meq/L ABG O2 Saturation (96.0-97.0) % ABG Base Excess (-2-2.0) Jose Angel Test A-a Gradient mmHg O2 Delivery Device Oxygen Flow Rate FiO2 (21.00-100.00) % Sodium 143 (136-145) mEq/L Potassium 4.9 (3.5-5.1) mEq/L Chloride 102 (98-107) mEq/L Carbon Dioxide 32 (21-32) mEq/L Anion Gap 13.9 (5-15) BUN 21 H (7-18) mg/dL Creatinine 1.3 (0.7-1.3) mg/dL Est Cr Clr Drug Dosing 58.46 mL/min Estimated GFR (MDRD) 56 (>60) mL/min BUN/Creatinine Ratio 16.2 (14-18) Glucose 119 H (74-106) mg/dL Calcium 9.8 (8.5-10.1) mg/dL Magnesium (1.8-2.4) mg/dl Iron (65-175) ug/dL TIBC (100-400) ug/dL % Saturation (20-55) % Transferrin (202-364) mg/dL Total Bilirubin 1.0 (0.2-1.0) mg/dL AST 38 H (15-37) U/L ALT 46 (16-63) U/L Alkaline Phosphatase 104 (46-116) U/L CK-MB (CK-2) 4.2 H (0-3.6) ng/ml Troponin I < 0.017 (0.00-0.056) ng/mL NT-Pro-B Natriuret Pep (0-125) pg/mL Total Protein 7.3 (6.4-8.2) g/dl Albumin 3.8 (3.4-5.0) g/dl Globulin 3.5 gm/dL Albumin/Globulin Ratio 1.1 (1-2) 09/06/18 09/06/18 09/06/18 Range/Units 12:40 12:40 13:49 WBC (4.23-9.07) K/mm3 RBC (4.63-6.08) M/mm3 Hgb (13.7-17.5) gm/L Hct (40.1-51.0) % MCV (79.0-92.2) fl MCH (25.7-32.2) pg MCHC (32.2-35.5) g/dl RDW Std Deviation (35.1-43.9) fL Plt Count (163-337) K/mm3 MPV (9.4-12.3) fl Neut % (Auto) (34.0-67.9) % Lymph % (Auto) (21.8-53.1) % [place] % (Auto) (5.3-12.2) % Eos % (Auto) (0.8-7.0) Baso % (Auto) (0.1-1.2) % Neut # (Auto) (1.78-5.38) K/mm3 Lymph # (Auto) (1.32-3.57) K/mm3 [place] # (Auto) (0.30-0.82) K/mm3 Eos # (Auto) (0.04-0.54) K/mm3 Baso # (Auto) (0.01-0.08) K/mm3 Neutrophils % (Manual) (40-60) % Band Neutrophils % (0-10) % Lymphocytes % (Manual) (20-40) % Atypical Lymphs % % Monocytes % (Manual) (2-10) % Eosinophils % (Manual) (0.8-7.0) % Basophils % (Manual) (0.2-1.2) Manual Slide Review Platelet Estimate Polychromasia Anisocytosis Macrocytosis RBC Morph Comment PT (9.5-12.1) SECONDS INR D-Dimer, Quantitative (0.19-0.50) mg/L Puncture Site Lt radial ABG pH 7.31 L (7.35-7.45) ABG pCO2 68.6 H (35.0-45.0) mmHg ABG pO2 54.0 L (80.0-100.0) mmHg ABG HCO3 33.8 H (22.0-26.0) meq/L ABG O2 Saturation 82.7 L (96.0-97.0) % ABG Base Excess 3.9 H (-2-2.0) Jose Angel Test Positive A-a Gradient mmHg O2 Delivery Device Nasal cannula Oxygen Flow Rate 4.0 FiO2 0.00 L (21.00-100.00) % Sodium (136-145) mEq/L Potassium (3.5-5.1) mEq/L Chloride (98-107) mEq/L Carbon Dioxide (21-32) mEq/L Anion Gap (5-15) BUN (7-18) mg/dL Creatinine (0.7-1.3) mg/dL Est Cr Clr Drug Dosing mL/min Estimated GFR (MDRD) (>60) mL/min BUN/Creatinine Ratio (14-18) Glucose (74-106) mg/dL Calcium (8.5-10.1) mg/dL Magnesium (1.8-2.4) mg/dl Iron 73 (65-175) ug/dL TIBC 443 H (100-400) ug/dL % Saturation 16 L (20-55) % Transferrin 354 (202-364) mg/dL Total Bilirubin (0.2-1.0) mg/dL AST (15-37) U/L ALT (16-63) U/L Alkaline Phosphatase (46-116) U/L CK-MB (CK-2) (0-3.6) ng/ml Troponin I (0.00-0.056) ng/mL NT-Pro-B Natriuret Pep 5029 H (0-125) pg/mL Total Protein (6.4-8.2) g/dl Albumin (3.4-5.0) g/dl Globulin gm/dL Albumin/Globulin Ratio (1-2) 09/06/18 09/06/18 09/07/18 Range/Units 14:09 19:05 06:00 WBC 11.94 H (4.23-9.07) K/mm3 RBC 6.51 H (4.63-6.08) M/mm3 Hgb 21.4 H (13.7-17.5) gm/L Hct 72.2 H (40.1-51.0) % MCV 102.8 H (79.0-92.2) fl MCH 32.9 H (25.7-32.2) pg MCHC 29.6 L (32.2-35.5) g/dl RDW Std Deviation 63.5 H (35.1-43.9) fL Plt Count 155 L (163-337) K/mm3 MPV 11.0 (9.4-12.3) fl Neut % (Auto) 68.1 H (34.0-67.9) % Lymph % (Auto) 18.3 L (21.8-53.1) % [place] % (Auto) 12.6 H (5.3-12.2) % Eos % (Auto) 0.4 L (0.8-7.0) Baso % (Auto) 0.3 (0.1-1.2) % Neut # (Auto) 8.13 H (1.78-5.38) K/mm3 Lymph # (Auto) 2.19 (1.32-3.57) K/mm3 [place] # (Auto) 1.50 H (0.30-0.82) K/mm3 Eos # (Auto) 0.05 (0.04-0.54) K/mm3 Baso # (Auto) 0.04 (0.01-0.08) K/mm3 Neutrophils % (Manual) (40-60) % Band Neutrophils % (0-10) % Lymphocytes % (Manual) (20-40) % Atypical Lymphs % % Monocytes % (Manual) (2-10) % Eosinophils % (Manual) (0.8-7.0) % Basophils % (Manual) (0.2-1.2) Manual Slide Review Abnormal smear Platelet Estimate Polychromasia Anisocytosis Macrocytosis RBC Morph Comment PT 16.6 H (9.5-12.1) SECONDS INR 1.54 D-Dimer, Quantitative (0.19-0.50) mg/L Puncture Site ABG pH (7.35-7.45) ABG pCO2 (35.0-45.0) mmHg ABG pO2 (80.0-100.0) mmHg ABG HCO3 (22.0-26.0) meq/L ABG O2 Saturation (96.0-97.0) % ABG Base Excess (-2-2.0) Jose Angel Test A-a Gradient mmHg O2 Delivery Device Oxygen Flow Rate FiO2 (21.00-100.00) % Sodium (136-145) mEq/L Potassium (3.5-5.1) mEq/L Chloride (98-107) mEq/L Carbon Dioxide (21-32) mEq/L Anion Gap (5-15) BUN (7-18) mg/dL Creatinine (0.7-1.3) mg/dL Est Cr Clr Drug Dosing mL/min Estimated GFR (MDRD) (>60) mL/min BUN/Creatinine Ratio (14-18) Glucose (74-106) mg/dL Calcium (8.5-10.1) mg/dL Magnesium (1.8-2.4) mg/dl Iron (65-175) ug/dL TIBC (100-400) ug/dL % Saturation (20-55) % Transferrin (202-364) mg/dL Total Bilirubin (0.2-1.0) mg/dL AST (15-37) U/L ALT (16-63) U/L Alkaline Phosphatase (46-116) U/L CK-MB (CK-2) (0-3.6) ng/ml Troponin I (0.00-0.056) ng/mL NT-Pro-B Natriuret Pep 2496 H (0-125) pg/mL Total Protein (6.4-8.2) g/dl Albumin (3.4-5.0) g/dl Globulin gm/dL Albumin/Globulin Ratio (1-2) 09/07/18 09/07/18 09/07/18 Range/Units 06:00 06:00 08:22 WBC 11.14 H (4.23-9.07) K/mm3 RBC 6.11 H (4.63-6.08) M/mm3 Hgb 19.5 H D (13.7-17.5) gm/L Hct 68.5 H (40.1-51.0) % MCV 112.1 H (79.0-92.2) fl MCH 31.9 (25.7-32.2) pg MCHC 28.5 L (32.2-35.5) g/dl RDW Std Deviation 63.7 H (35.1-43.9) fL Plt Count 154 L (163-337) K/mm3 MPV 11.1 (9.4-12.3) fl Neut % (Auto) 67.3 (34.0-67.9) % Lymph % (Auto) 19.8 L (21.8-53.1) % [place] % (Auto) 11.8 (5.3-12.2) % Eos % (Auto) 0.5 L (0.8-7.0) Baso % (Auto) 0.4 (0.1-1.2) % Neut # (Auto) 7.49 H (1.78-5.38) K/mm3 Lymph # (Auto) 2.21 (1.32-3.57) K/mm3 [place] # (Auto) 1.31 H (0.30-0.82) K/mm3 Eos # (Auto) 0.06 (0.04-0.54) K/mm3 Baso # (Auto) 0.05 (0.01-0.08) K/mm3 Neutrophils % (Manual) (40-60) % Band Neutrophils % (0-10) % Lymphocytes % (Manual) (20-40) % Atypical Lymphs % % Monocytes % (Manual) (2-10) % Eosinophils % (Manual) (0.8-7.0) % Basophils % (Manual) (0.2-1.2) Manual Slide Review Abnormal smear Platelet Estimate Polychromasia Anisocytosis Macrocytosis RBC Morph Comment PT (9.5-12.1) SECONDS INR D-Dimer, Quantitative (0.19-0.50) mg/L Puncture Site Lt radial ABG pH 7.33 L (7.35-7.45) ABG pCO2 69.2 H (35.0-45.0) mmHg ABG pO2 59.0 L (80.0-100.0) mmHg ABG HCO3 35.2 H (22.0-26.0) meq/L ABG O2 Saturation 87.3 L (96.0-97.0) % ABG Base Excess 5.6 H (-2-2.0) Jose Angel Test Positive A-a Gradient 59 mmHg O2 Delivery Device Nasal cannula Oxygen Flow Rate 3.0 FiO2 32.00 (21.00-100.00) % Sodium 143 (136-145) mEq/L Potassium 5.0 (3.5-5.1) mEq/L Chloride 100 (98-107) mEq/L Carbon Dioxide 38 H (21-32) mEq/L Anion Gap 10.0 (5-15) BUN 19 H (7-18) mg/dL Creatinine 1.3 (0.7-1.3) mg/dL Est Cr Clr Drug Dosing 58.68 mL/min Estimated GFR (MDRD) 56 (>60) mL/min BUN/Creatinine Ratio 14.6 (14-18) Glucose 82 (74-106) mg/dL Calcium 9.2 (8.5-10.1) mg/dL Magnesium 1.7 L (1.8-2.4) mg/dl Iron (65-175) ug/dL TIBC (100-400) ug/dL % Saturation (20-55) % Transferrin (202-364) mg/dL Total Bilirubin 1.1 H (0.2-1.0) mg/dL AST 36 (15-37) U/L ALT 41 (16-63) U/L Alkaline Phosphatase 94 (46-116) U/L CK-MB (CK-2) (0-3.6) ng/ml Troponin I < 0.017 (0.00-0.056) ng/mL NT-Pro-B Natriuret Pep (0-125) pg/mL Total Protein 6.7 (6.4-8.2) g/dl Albumin 3.4 (3.4-5.0) g/dl Globulin 3.3 gm/dL Albumin/Globulin Ratio 1.0 (1-2) Med Orders - Current: Current Medications Acetaminophen (Tylenol) 650 mg PO Q4H PRN PRN Reason: Pain Last Admin: 09/07/18 05:56 Dose: 650 mg Albuterol (Proventil Neb Soln) 2.5 mg NEB Q2H PRN PRN Reason: Dyspnea Last Admin: 09/06/18 20:05 Dose: 2.5 mg Albuterol/Ipratropium (Duoneb 3.0-0.5 Mg/3 Ml) 3 ml NEB Q4HRRT [facility] Last Admin: 09/07/18 10:11 Dose: 3 ml Captopril (Capoten) 6.25 mg PO Q8H [facility] Last Admin: 09/07/18 09:47 Dose: 6.25 mg Enoxaparin Sodium (Lovenox) 40 mg SUBCUT DAILY [facility] Last Admin: 09/07/18 08:19 Dose: 40 mg Ceftriaxone Sodium 1 gm/ (Sodium Chloride) 100 mls @ 200 mls/hr IV Q24H [facility] Last Admin: 09/06/18 19:48 Dose: 200 mls/hr Sodium Chloride (Normal Saline) 1,000 mls @ 50 mls/hr IV ASDIRECTED [facility] Last Admin: 09/06/18 22:41 Dose: 50 mls/hr Melatonin (Melatonin) 6 mg PO BEDTIME PRN PRN Reason: Insomnia Last Admin: 09/06/18 23:20 Dose: 6 mg Methylprednisolone Sodium Succinate (Solu-Medrol) 60 mg IVPUSH Q6H [facility] Last Admin: 09/07/18 12:09 Dose: 60 mg Miscellaneous Information (Remove Patch) 1 ea TRDERM DAILY [facility] Last Admin: 09/07/18 08:23 Dose: Not Given Nicotine (Habitrol) 21 mg TRDERM DAILY [facility] Last Admin: 09/07/18 08:23 Dose: Not Given Ondansetron HCl (Zofran Odt) 4 mg PO Q4H PRN PRN Reason: nausea, able to take PO Sodium Chloride (Saline Flush) 10 ml FLUSH ASDIRECTED PRN PRN Reason: Keep Vein Open Last Admin: 09/06/18 13:59 Dose: 10 ml Discontinued Medications Albuterol/Ipratropium (Duoneb 3.0-0.5 Mg/3 Ml) 3 ml NEB ONETIME ONE Stop: 09/06/18 13:23 Last Admin: 09/06/18 13:39 Dose: 3 ml Ceftriaxone Sodium (Rocephin) 1 gm IM Q24H [facility] Last Admin: 09/06/18 20:50 Dose: Not Given Furosemide (Lasix) 40 mg IVPUSH NOW ONE Stop: 09/06/18 14:16 Last Admin: 09/06/18 14:37 Dose: 40 mg Sodium Chloride (Normal Saline) 100 mls @ 60 mls/hr IV ASDIRECTED [facility] Last Admin: 09/06/18 14:26 Dose: 60 mls/hr Sodium Chloride (Normal Saline) 1,000 mls @ 100 mls/hr IV ASDIRECTED [facility] Last Admin: 09/06/18 14:36 Dose: 100 mls/hr Magnesium Sulfate 2 gm/ Premix 50 mls @ 25 mls/hr IV ONETIME ONE Stop: 09/07/18 09:16 Last Admin: 09/07/18 07:44 Dose: 25 mls/hr Iohexol (Omnipaque) 75 ml IVPUSH ONETIME ONE Stop: 09/06/18 14:07 Last Admin: 09/06/18 14:26 Dose: 75 ml Pneumococcal Polyvalent Vaccine (Pneumovax 23) 0.5 ml IM .ONCE ONE Stop: 09/06/18 17:49 Last Admin: 09/06/18 19:45 Dose: Not Given Sodium Chloride (Saline Flush) 10 ml FLUSH ONETIME ONE Stop: 09/06/18 14:07 Last Admin: 09/06/18 14:26 Dose: 10 ml - Exam Quality Assessment: Supplemental Oxygen General: Alert, Oriented HEENT: Pupils Equal, Pupils Reactive Neck: Supple Lungs: Other (Mild increased respiratory effort with decreased breath sounds but improved.) Cardiovascular: Regular Rate, Regular Rhythm GI/Abdominal Exam: Normal Bowel Sounds, Soft, Non-Tender, No Organomegaly, Distended Extremities: Pedal Edema (One of 2+ edema on the right leg. Left leg scant edema ) - Problem List & Annotations (1) Respiratory failure with hypoxia and hypercapnia SNOMED Code(s): 88057587 Code(s): J96.91 - RESPIRATORY FAILURE, UNSPECIFIED WITH HYPOXIA; J96.92 - RESPIRATORY FAILURE, UNSPECIFIED WITH HYPERCAPNIA Status: Acute Current Visit: Yes (2) Respiratory acidosis SNOMED Code(s): 81066158 Code(s): E87.2 - ACIDOSIS Status: Acute Current Visit: Yes (3) HTN (hypertension) SNOMED Code(s): 11139915 Code(s): I10 - ESSENTIAL (PRIMARY) HYPERTENSION Status: Acute Current Visit: Yes (4) CHF (congestive heart failure) SNOMED Code(s): 36079978 Code(s): I50.9 - HEART FAILURE, UNSPECIFIED Status: Acute Current Visit: Yes (5) COPD exacerbation SNOMED Code(s): 323445068 Code(s): J44.1 - CHRONIC OBSTRUCTIVE PULMONARY DISEASE W (ACUTE) EXACERBATION Status: Acute Current Visit: Yes (6) Polycythemia SNOMED Code(s): 048497873 Code(s): D75.1 - SECONDARY POLYCYTHEMIA Status: Acute Current Visit: Yes - Problem List Review Problem List Initiated/Reviewed/Updated: Yes - My Orders Last 24 Hours: My Active Orders 09/06/18 18:13 Height and Weight [RC] 0400 Up ad Janiya [RC] ASDIRECTED VTE/DVT Education [RC] PER UNIT ROUTINE Resuscitation Status Routine 09/06/18 18:14 Intake and Output [RC] 04,16 09/06/18 18:15 Oxygen Therapy [RC] PRN Ondansetron [Zofran ODT] 4 mg PO Q4H PRN 09/06/18 18:16 Ambulate [RC] PER UNIT ROUTINE Antiembolic Devices [RC] DAILY Antiembolic Hose [OM.PC] Per Unit Routine 09/06/18 18:18 RT BiPAP/CPAP [RC] ASDIRECTED 09/06/18 18:20 Albuterol [Proventil Neb Soln] 2.5 mg NEB Q2H PRN 09/06/18 18:30 Captopril [Capoten] 6.25 mg PO Q8H 09/06/18 19:00 Nicotine [Habitrol] 21 mg TRDERM DAILY 09/06/18 19:46 Melatonin 6 mg PO BEDTIME PRN 09/06/18 20:00 cefTRIAXone [Rocephin] 1 gm Sodium Chloride 0.9% [Normal Saline] 100 ml IV Q24H 09/06/18 22:00 Albuterol/Ipratropium [DuoNeb 3.0-0.5 MG/3 ML] 3 ml NEB Q4HRRT 09/06/18 22:30 Sodium Chloride 0.9% [Normal Saline] 1,000 ml IV ASDIRECTED 09/06/18 Dinner Heart Healthy Diet [DIET] 09/07/18 02:53 Acetaminophen [Tylenol] 650 mg PO Q4H PRN 09/07/18 06:00 ERYTHROPOIETIN [REF] Routine 09/07/18 08:00 Abdomen Comp [US] Routine 09/07/18 09:00 Enoxaparin [Lovenox] 40 mg SUBCUT DAILY Remove Patch 1 ea TRDERM DAILY 09/07/18 12:00 methylPREDNISolone Sod Succ [Solu-MEDROL] 60 mg IVPUSH Q6H 09/07/18 14:10 ABG [BLOOD GAS ARTERIAL] [BG] Urgent 09/07/18 Breakfast Heart Healthy Diet [DIET] 09/08/18 05:10 PRO B-TYPE NATRIUR PEPT,BNPPRO [CHEM] Routine 09/08/18 05:11 CBC WITH AUTO DIFF [HEME] AM CMP [COMPREHENSIVE METABOLIC PN,CMP] [CHEM] AM MAGNESIUM [CHEM] AM PHOSPHORUS [CHEM] AM - Plan Plan:: Respiratory failure with hypoxia and hypercarbia and acute on chronic respiratory acidosis * BiPAP-respiratory to titrate * Albuterol and ipratropium bromide nebulizer every 4 hours * Albuterol nebulizer every 2 hours when necessary * Significant improvement in his blood gas on BiPAP. PH 7.38, PCO2 59.7(down from 69.2) PO2 55.0, HCO3 34.2 CHF * Likely right heart failure secondary to pulmonary hypertension * Unfortunately, diuresis will be difficult secondary to his polycythemia. * CHF improved with BiPAP and in improvement in respiratory function. * Captopril 6.25 mg 3 times a day * Echocardiogram: Pending results Polycythemia * Hemoglobin has dropped from 21.5-19.5 * Follow CBC in the morning. * abdominal ultrasound pending. * Lower extremity Dopplers were negative for DVT * Therapeutic phlebotomy unlikely secondary to the improvement in his hemoglobin * Continue normal saline 50 mL for our wall on BiPAP COPD exacerbation * See above * Rocephin 1 g IV every 24 hours * Methylprednisolone 60 mg IV every 6 hours Hypertension * Captopril 6.25 mg 3 times a day * See above Tobaccoism * Start nicotine patch Alcohol use * Follow closely in the ICU for withdrawal symptoms Consult discharge planning CODE STATUS: Full code
--- NOTE | 2018-09-07 15:47 | US ---
Abdominal ultrasound: Multiple real-time images of the abdomen were obtained. Visualized portions of the pancreas are unremarkable. Small right sided pleural effusion is seen. Minimal free fluid seen next to the left kidney. Small amount of para cholecystic fluid also noted. Mild amount of sludge noted within the gallbladder. No shadowing gallstones are seen. No gallbladder wall thickening or biliary duct dilatation is seen. Small hyperechoic finding is seen within the left lobe of the liver measuring about 9 mm. This is likely due to small hemangioma. Second hyperechoic lesion is seen posteriorly within the right lobe measuring 7 mm also felt compatible with a hemangioma. Kidneys show no hydronephrosis or mass. Right kidney has a length of 11.7 cm and left kidney is a length 12.8 cm. Spleen size is normal. Small soft tissue nodule is seen next to the spleen compatible with accessory splenic tissue measuring 9 mm. Aorta shows no aneurysm. Inferior vena cava is patent. Portal vein shows normal hepatopedal flow. Impression: 1. 2 small hemangiomas within the liver. 2. Sludge within the gallbladder. Minimal pericholecystic fluid is seen. No gallbladder wall thickening or biliary duct dilatation is seen. 3. Minimal fluid next to the left kidney. 4. Small right-sided pleural effusion. 5. No additional abnormality is appreciated. Diagnostic code #3
[2018-09-07] MEDS: Sodium Chloride 0.9% 1,000 ML IV SCH (17:47)
[2018-09-07] MEDS: cefTRIAXone 1 GM in Sodium Chloride 0.9% 100 ML IV SCH (19:33)
[2018-09-07] MEDS: Melatonin 3 MG Tab PO PRN (23:44)
[2018-09-08] MEDS: Albuterol/Ipratropium 3.0-0.5 MG/3 ML Neb Soln NEB SCH ×4 (03:07→20:28)
[2018-09-08] MEDS: methylPREDNISolone Sodium Succinate 40 MG/1 ML SDV IVPUSH SCH ×2 (05:28→11:34)
[2018-09-08] MEDS: Enoxaparin 40 MG/0.4 ML Syringe SUBCUT SCH (08:02)
[2018-09-08] MEDS: Nicotine 21 MG/24 Hr Patch TRDERM SCH (08:03)
[2018-09-08] MEDS ORDERED: Sodium Chloride 0.9% 10 ML Syringe FLUSH PRN (09:23)
--- NOTE | 2018-09-08 13:00 | PCM.PN ---
- General Info Date of Service: 09/08/18 Admission Dx/Problem (Free Text): Admission Diagnosis/Problem Admission Diagnosis/Problem Exacerbation of chronic obstructive pulmonary disease Subjective Update: Patient tolerated his BiPAP overnight. He had a significant improvement in his BNP trapping from approximate 5000 to approximately 2400. Blood gas improved just marginally to a pH of 7.33. He continues to receive DuoNeb every 4 hours. Hemoglobin has decreased 19.5. He continues on 50 mL per hour of normal saline July 09, 2018 Patient continues to do well. Said improvement and is only on 3 L nasal cannula. He tolerated BiPAP until approximately 4:00 in the morning. Echocardiogram returned showing 1. left ventricular ejection fraction of 55-60% 2. Normal left ventricular systolic function. 3. Mildly reduced right ventricular systolic function. 4. Right ventricular size is moderately enlarged. 5. Mildly dilated right atrium. 6. Mild to moderate tricuspid valve regurgitation. 7. Right ventricular systolic pressure is moderately elevated at 38.8 mmHg and may be underestimated. 8. The inferior vena cava is normal sized with respiratory size variation greater than 50%. 9. No regional wall motion abnormalities. 10. Large left pleural effusion. Functional Status: Reports: Pain Controlled - Review of Systems General: Reports: No Symptoms. Denies: Fever, Weakness HEENT: Reports: No Symptoms Pulmonary: Reports: Shortness of Breath, Cough, Sputum. Denies: Hemoptysis Cardiovascular: Reports: Dyspnea on Exertion, Edema. Denies: Chest Pain, Palpitations Gastrointestinal: Reports: No Symptoms. Denies: Abdominal Pain, Constipation, Diarrhea Neurological: Reports: No Symptoms - Patient Data Vitals - Most Recent: Last Vital Signs Temp 97.5 F 09/08/18 07:50 Pulse 94 09/08/18 07:50 Resp 19 09/08/18 07:50 BP 115/67 09/08/18 09:36 Pulse Ox 90 L 09/08/18 08:45 Weight - Most Recent: 178 lb I&O - Last 24 Hours: Intake & Output 09/07/18 09/08/18 09/08/18 22:59 06:59 14:59 Intake Total 2634 660 619 Output Total 1100 600 Balance 1534 60 619 Lab Results Last 24 Hours: Laboratory Results - last 24 hr 09/07/18 09/08/18 09/08/18 Range/Units 14:13 05:30 05:30 WBC 7.11 (4.23-9.07) K/mm3 RBC 5.64 (4.63-6.08) M/mm3 Hgb 18.2 H (13.7-17.5) gm/L Hct 57.7 H (40.1-51.0) % MCV 102.3 H (79.0-92.2) fl MCH 32.3 H (25.7-32.2) pg MCHC 31.5 L (32.2-35.5) g/dl RDW Std Deviation 59.4 H (35.1-43.9) fL Plt Count 147 L (163-337) K/mm3 MPV 10.9 (9.4-12.3) fl Neut % (Auto) 88.7 H (34.0-67.9) % Lymph % (Auto) 7.3 L (21.8-53.1) % Ware % (Auto) 3.7 L (5.3-12.2) % Eos % (Auto) 0 L (0.8-7.0) Baso % (Auto) 0.0 L (0.1-1.2) % Neut # (Auto) 6.31 H (1.78-5.38) K/mm3 Lymph # (Auto) 0.52 L (1.32-3.57) K/mm3 Ware # (Auto) 0.26 L (0.30-0.82) K/mm3 Eos # (Auto) 0.00 L (0.04-0.54) K/mm3 Baso # (Auto) 0.00 L (0.01-0.08) K/mm3 Manual Slide Review Abnormal smear Puncture Site Rt radial ABG pH 7.38 (7.35-7.45) ABG pCO2 59.7 H (35.0-45.0) mmHg ABG pO2 55.0 L (80.0-100.0) mmHg ABG HCO3 34.2 H (22.0-26.0) meq/L ABG O2 Saturation 86.5 L (96.0-97.0) % ABG Base Excess 6.5 H (-2-2.0) Jose Angel Test Positive A-a Gradient 101 mmHg O2 Delivery Device Bipap 12/6 Oxygen Flow Rate 4.0 FiO2 36.00 (21.00-100.00) % Sodium (136-145) mEq/L Potassium (3.5-5.1) mEq/L Chloride (98-107) mEq/L Carbon Dioxide (21-32) mEq/L Anion Gap (5-15) BUN (7-18) mg/dL Creatinine (0.7-1.3) mg/dL Est Cr Clr Drug Dosing mL/min Estimated GFR (MDRD) (>60) mL/min BUN/Creatinine Ratio (14-18) Glucose (74-106) mg/dL Calcium (8.5-10.1) mg/dL Phosphorus (2.6-4.7) mg/dL Magnesium (1.8-2.4) mg/dl Total Bilirubin (0.2-1.0) mg/dL AST (15-37) U/L ALT (16-63) U/L Alkaline Phosphatase (46-116) U/L NT-Pro-B Natriuret Pep 1297 H (0-125) pg/mL Total Protein (6.4-8.2) g/dl Albumin (3.4-5.0) g/dl Globulin gm/dL Albumin/Globulin Ratio (1-2) 09/08/18 Range/Units 05:30 WBC (4.23-9.07) K/mm3 RBC (4.63-6.08) M/mm3 Hgb (13.7-17.5) gm/L Hct (40.1-51.0) % MCV (79.0-92.2) fl MCH (25.7-32.2) pg MCHC (32.2-35.5) g/dl RDW Std Deviation (35.1-43.9) fL Plt Count (163-337) K/mm3 MPV (9.4-12.3) fl Neut % (Auto) (34.0-67.9) % Lymph % (Auto) (21.8-53.1) % Ware % (Auto) (5.3-12.2) % Eos % (Auto) (0.8-7.0) Baso % (Auto) (0.1-1.2) % Neut # (Auto) (1.78-5.38) K/mm3 Lymph # (Auto) (1.32-3.57) K/mm3 Ware # (Auto) (0.30-0.82) K/mm3 Eos # (Auto) (0.04-0.54) K/mm3 Baso # (Auto) (0.01-0.08) K/mm3 Manual Slide Review Puncture Site ABG pH (7.35-7.45) ABG pCO2 (35.0-45.0) mmHg ABG pO2 (80.0-100.0) mmHg ABG HCO3 (22.0-26.0) meq/L ABG O2 Saturation (96.0-97.0) % ABG Base Excess (-2-2.0) Jose Angel Test A-a Gradient mmHg O2 Delivery Device Oxygen Flow Rate FiO2 (21.00-100.00) % Sodium 142 (136-145) mEq/L Potassium 4.2 (3.5-5.1) mEq/L Chloride 103 (98-107) mEq/L Carbon Dioxide 34 H (21-32) mEq/L Anion Gap 9.2 (5-15) BUN 20 H (7-18) mg/dL Creatinine 0.9 (0.7-1.3) mg/dL Est Cr Clr Drug Dosing 84.76 mL/min Estimated GFR (MDRD) > 60 (>60) mL/min BUN/Creatinine Ratio 22.2 H (14-18) Glucose 136 H (74-106) mg/dL Calcium 8.4 L (8.5-10.1) mg/dL Phosphorus 4.3 (2.6-4.7) mg/dL Magnesium 1.8 (1.8-2.4) mg/dl Total Bilirubin 0.6 (0.2-1.0) mg/dL AST 20 (15-37) U/L ALT 28 (16-63) U/L Alkaline Phosphatase 78 (46-116) U/L NT-Pro-B Natriuret Pep (0-125) pg/mL Total Protein 5.8 L (6.4-8.2) g/dl Albumin 3.0 L (3.4-5.0) g/dl Globulin 2.8 gm/dL Albumin/Globulin Ratio 1.1 (1-2) Med Orders - Current: Current Medications Acetaminophen (Tylenol) 650 mg PO Q4H PRN PRN Reason: Pain Last Admin: 09/07/18 19:26 Dose: 650 mg Albuterol (Proventil Neb Soln) 2.5 mg NEB Q2H PRN PRN Reason: Dyspnea Last Admin: 09/06/18 20:05 Dose: 2.5 mg Albuterol/Ipratropium (Duoneb 3.0-0.5 Mg/3 Ml) 3 ml NEB Q6HRRT [facility] Last Admin: 09/08/18 08:49 Dose: 3 ml Captopril (Capoten) 6.25 mg PO Q8H [facility] Last Admin: 09/08/18 09:36 Dose: 6.25 mg Enoxaparin Sodium (Lovenox) 40 mg SUBCUT DAILY [facility] Last Admin: 09/08/18 08:02 Dose: 40 mg Ceftriaxone Sodium 1 gm/ (Sodium Chloride) 100 mls @ 200 mls/hr IV Q24H [facility] Last Admin: 09/07/18 19:33 Dose: 200 mls/hr Melatonin (Melatonin) 6 mg PO BEDTIME PRN PRN Reason: Insomnia Last Admin: 09/07/18 23:44 Dose: 6 mg Methylprednisolone Sodium Succinate (Solu-Medrol) 60 mg IVPUSH Q6H [facility] Last Admin: 09/08/18 11:34 Dose: 60 mg Miscellaneous Information (Remove Patch) 1 ea TRDERM DAILY [facility] Last Admin: 09/08/18 08:03 Dose: Not Given Nicotine (Habitrol) 21 mg TRDERM DAILY [facility] Last Admin: 09/08/18 08:03 Dose: Not Given Ondansetron HCl (Zofran Odt) 4 mg PO Q4H PRN PRN Reason: nausea, able to take PO Sodium Chloride (Saline Flush) 10 ml FLUSH ASDIRECTED PRN PRN Reason: Keep Vein Open Discontinued Medications Albuterol/Ipratropium (Duoneb 3.0-0.5 Mg/3 Ml) 3 ml NEB ONETIME ONE Stop: 09/06/18 13:23 Last Admin: 09/06/18 13:39 Dose: 3 ml Albuterol/Ipratropium (Duoneb 3.0-0.5 Mg/3 Ml) 3 ml NEB Q4HRRT [facility] Last Admin: 09/07/18 14:20 Dose: 3 ml Ceftriaxone Sodium (Rocephin) 1 gm IM Q24H [facility] Last Admin: 09/06/18 20:50 Dose: Not Given Furosemide (Lasix) 40 mg IVPUSH NOW ONE Stop: 09/06/18 14:16 Last Admin: 09/06/18 14:37 Dose: 40 mg Sodium Chloride (Normal Saline) 100 mls @ 60 mls/hr IV ASDIRECTED [facility] Last Admin: 09/06/18 14:26 Dose: 60 mls/hr Sodium Chloride (Normal Saline) 1,000 mls @ 100 mls/hr IV ASDIRECTED [facility] Last Admin: 09/06/18 14:36 Dose: 100 mls/hr Sodium Chloride (Normal Saline) 1,000 mls @ 50 mls/hr IV ASDIRECTED [facility] Last Admin: 09/07/18 17:47 Dose: 50 mls/hr Magnesium Sulfate 2 gm/ Premix 50 mls @ 25 mls/hr IV ONETIME ONE Stop: 09/07/18 09:16 Last Admin: 09/07/18 07:44 Dose: 25 mls/hr Iohexol (Omnipaque) 75 ml IVPUSH ONETIME ONE Stop: 09/06/18 14:07 Last Admin: 09/06/18 14:26 Dose: 75 ml Pneumococcal Polyvalent Vaccine (Pneumovax 23) 0.5 ml IM .ONCE ONE Stop: 09/06/18 17:49 Last Admin: 09/06/18 19:45 Dose: Not Given Sodium Chloride (Saline Flush) 10 ml FLUSH ASDIRECTED PRN PRN Reason: Keep Vein Open Last Admin: 09/06/18 13:59 Dose: 10 ml Sodium Chloride (Saline Flush) 10 ml FLUSH ONETIME ONE Stop: 09/06/18 14:07 Last Admin: 09/06/18 14:26 Dose: 10 ml - Exam Quality Assessment: Supplemental Oxygen General: Alert, Oriented HEENT: Pupils Equal, Pupils Reactive Neck: Supple Lungs: Other (mildly increased posterior rates. Decreased breath sounds left lung and slight improvement otherwise. No rales or rhonchi noted.) Cardiovascular: Regular Rate, Regular Rhythm Extremities: Non-Tender, Pedal Edema Skin: Warm, Dry, Intact - Problem List & Annotations (1) Respiratory failure with hypoxia and hypercapnia SNOMED Code(s): 91132848 Code(s): J96.91 - RESPIRATORY FAILURE, UNSPECIFIED WITH HYPOXIA; J96.92 - RESPIRATORY FAILURE, UNSPECIFIED WITH HYPERCAPNIA Status: Acute Current Visit: Yes (2) Respiratory acidosis SNOMED Code(s): 22754452 Code(s): E87.2 - ACIDOSIS Status: Acute Current Visit: Yes (3) HTN (hypertension) SNOMED Code(s): 84343247 Code(s): I10 - ESSENTIAL (PRIMARY) HYPERTENSION Status: Acute Current Visit: Yes (4) CHF (congestive heart failure) SNOMED Code(s): 91739902 Code(s): I50.9 - HEART FAILURE, UNSPECIFIED Status: Acute Current Visit: Yes (5) COPD exacerbation SNOMED Code(s): 746018321 Code(s): J44.1 - CHRONIC OBSTRUCTIVE PULMONARY DISEASE W (ACUTE) EXACERBATION Status: Acute Current Visit: Yes (6) Polycythemia SNOMED Code(s): 493652510 Code(s): D75.1 - SECONDARY POLYCYTHEMIA Status: Acute Current Visit: Yes - Problem List Review Problem List Initiated/Reviewed/Updated: Yes - My Orders Last 24 Hours: My Active Orders 09/07/18 12:00 methylPREDNISolone Sod Succ [Solu-MEDROL] 60 mg IVPUSH Q6H 09/07/18 16:57 Incentive Spirometry [RT Incentive Spirometry] [RC] ASDIRECTED 09/07/18 17:00 RT BiPAP/CPAP [RC] ASDIRECTED 09/07/18 21:00 Albuterol/Ipratropium [DuoNeb 3.0-0.5 MG/3 ML] 3 ml NEB Q6HRRT 09/08/18 08:50 Admission Status [Patient Status] [ADT] Routine 09/08/18 09:12 PT Evaluation and Treatment [CONS] Routine 09/08/18 09:13 OT Evaluation and Treatment [CONS] Routine 09/08/18 09:23 Sodium Chloride 0.9% [Saline Flush] 10 ml FLUSH ASDIRECTED PRN Convert IV to Saline Lock [OM.PC] Routine 09/08/18 12:51 CXR [Chest 1V Frontal] [CR] Routine - Plan Plan:: Respiratory failure with hypoxia and hypercarbia and acute on chronic respiratory acidosis * BiPAP-respiratory to titrate * Albuterol and ipratropium bromide nebulizer every 4 hours * Albuterol nebulizer every 2 hours when necessary * Significant improvement in his blood gas on BiPAP. PH 7.38, PCO2 59.7(down from 69.2) PO2 55.0, HCO3 34.2 * repeat chest x-ray secondary to echo finding of left pleural effusion CHF * Likely right heart failure secondary to pulmonary hypertension * Unfortunately, diuresis will be difficult secondary to his polycythemia. * CHF improved with BiPAP and in improvement in respiratory function. * Captopril 6.25 mg 3 times a day * Echocardiogram: 1. left ventricular ejection fraction of 55-60%2. Normal left ventricular systolic function. 3. Mildly reduced right ventricular systolic function. 4. Right ventricular size is moderately enlarged. 5. Mildly dilated right atrium. 6. Mild to moderate tricuspid valve regurgitation. 7. Right ventricular systolic pressure is moderately elevated at 38.8 mmHg and may be underestimated. 8. The inferior vena cava is normal sized with respiratory size variation greater than 50%. 9. No regional wall motion abnormalities. 10. Large left pleural effusion. Polycythemia * Hemoglobin has dropped from 21.5-19.5-18.2 * Follow CBC in the morning. * abdominal ultrasound: 1. 2 small hemangiomas within the liver. 2. Sludge within the gallbladder. 3. Minimal fluid next to the left kidney. 4. Small right -sided pleural effusion. * Lower extremity Dopplers were negative for DVT * Therapeutic phlebotomy unlikely secondary to the improvement in his hemoglobin * Continue normal saline 50 mL for our wall on BiPAP COPD exacerbation * See above * DC Rocephin 1 g IV every 24 hours * start Augmentin 875 mg twice a day * DC Methylprednisolone 60 mg IV every 6 hours * start prednisone 40 mg a day Hypertension * Captopril 6.25 mg 3 times a day * See above Tobaccoism * Start nicotine patch transfer to [facility] telemetry from ICU status Consult discharge planning CODE STATUS: Full code
[2018-09-08] MEDS: guaiFENesin 600 MG Tab.ER PO SCH ×2 (13:21→20:24)
--- NOTE | 2018-09-08 13:54 | CR ---
Chest: Portable view of the chest was obtained. Comparison: Previous chest CT of 09/06/18. Haziness within the right lung base is seen. Atelectasis around the right minor fissure is noted. Left lung is clear. Heart size is mildly enlarged. Slightly tortuous thoracic aorta is seen. Bony structures are grossly intact. Impression: 1. Haziness within the right lung base most likely due to combination of pleural effusion and atelectasis. Atelectasis is also noted along the right minor fissure. 2. Cardiomegaly. 3. Other incidental findings. Diagnostic code #3
[2018-09-08] MEDS: Acetaminophen 325 MG Tab PO PRN (17:34)
[2018-09-08] MEDS: Amoxicillin/Clavulanate K 875-125 MG Tab PO SCH (20:24)
[2018-09-08] MEDS: predniSONE 20 MG Tab PO SCH (20:24)
[2018-09-09] MEDS: Albuterol/Ipratropium 3.0-0.5 MG/3 ML Neb Soln NEB SCH ×4 (03:09→20:38)
[2018-09-09] MEDS: predniSONE 20 MG Tab PO SCH (06:11)
--- NOTE | 2018-09-09 10:08 | PCM.PN ---
- General Info Date of Service: 09/09/18 Admission Dx/Problem (Free Text): Admission Diagnosis/Problem Admission Diagnosis/Problem Exacerbation of chronic obstructive pulmonary disease Subjective Update: Patient tolerated his BiPAP overnight. He had a significant improvement in his BNP trapping from approximate 5000 to approximately 2400. Blood gas improved just marginally to a pH of 7.33. He continues to receive DuoNeb every 4 hours. Hemoglobin has decreased 19.5. He continues on 50 mL per hour of normal saline July 09, 2018 Patient continues to do well. Continued improvement and is only on 3 L nasal cannula. He tolerated BiPAP until approximately 4:00 in the morning. Echocardiogram returned showing 1. left ventricular ejection fraction of 55-60% 2. Normal left ventricular systolic function. 3. Mildly reduced right ventricular systolic function. 4. Right ventricular size is moderately enlarged. 5. Mildly dilated right atrium. 6. Mild to moderate tricuspid valve regurgitation. 7. Right ventricular systolic pressure is moderately elevated at 38.8 mmHg and may be underestimated. 8. The inferior vena cava is normal sized with respiratory size variation greater than 50%. 9. No regional wall motion abnormalities. 10. Large left pleural effusion. July 10, 2018 Patient continues to improve. He continues on 3 L nasal cannula. Patient still has some mild tachypnea. Chest x-ray showed no significant changes from previous and there was no left pleural effusion as was seen on the echo. Patient did have a nonsustained episode of V. tach early this morning. Functional Status: Reports: Pain Controlled - Review of Systems General: Denies: Fever, Weakness HEENT: Reports: No Symptoms Pulmonary: Reports: Shortness of Breath, Cough Cardiovascular: Denies: Chest Pain, Palpitations Musculoskeletal: Reports: Back Pain Skin: Reports: No Symptoms Neurological: Reports: No Symptoms - Patient Data Vitals - Most Recent: Last Vital Signs Temp 97.8 F 09/09/18 03:00 Pulse 84 09/09/18 03:00 Resp 16 09/09/18 03:00 BP 125/88 09/09/18 03:15 Pulse Ox 91 L 09/09/18 08:30 Weight - Most Recent: 179 lb 1.6 oz I&O - Last 24 Hours: Intake & Output 09/08/18 09/09/18 09/09/18 22:59 06:59 14:59 Intake Total 1640 450 Output Total 1100 625 Balance 540 -175 Med Orders - Current: Current Medications Acetaminophen (Tylenol) 650 mg PO Q4H PRN PRN Reason: Pain Last Admin: 09/08/18 17:34 Dose: 650 mg Albuterol (Proventil Neb Soln) 2.5 mg NEB Q2H PRN PRN Reason: Dyspnea Last Admin: 09/06/18 20:05 Dose: 2.5 mg Albuterol/Ipratropium (Duoneb 3.0-0.5 Mg/3 Ml) 3 ml NEB Q6HRRT [facility] Last Admin: 09/09/18 08:25 Dose: 3 ml Amoxicillin/Clavulanate Potassium (Augmentin 875 Mg/125 Mg) 1 tab PO Q12HR [facility] Stop: 09/11/18 21:01 Last Admin: 09/08/18 20:24 Dose: 1 tab Captopril (Capoten) 6.25 mg PO Q8H [facility] Last Admin: 09/09/18 03:15 Dose: 6.25 mg Enoxaparin Sodium (Lovenox) 40 mg SUBCUT DAILY [facility] Last Admin: 09/08/18 08:02 Dose: 40 mg Guaifenesin (Mucinex) 1,200 mg PO BID [facility] Last Admin: 09/08/18 20:24 Dose: 1,200 mg Melatonin (Melatonin) 6 mg PO BEDTIME PRN PRN Reason: Insomnia Last Admin: 09/07/18 23:44 Dose: 6 mg Miscellaneous Information (Remove Patch) 1 ea TRDERM DAILY [facility] Last Admin: 09/08/18 08:03 Dose: Not Given Nicotine (Habitrol) 21 mg TRDERM DAILY [facility] Last Admin: 09/08/18 08:03 Dose: Not Given Ondansetron HCl (Zofran Odt) 4 mg PO Q4H PRN PRN Reason: nausea, able to take PO Prednisone (Prednisone) 40 mg PO WITHBREAKFAST [facility] Last Admin: 09/09/18 06:11 Dose: 40 mg Sodium Chloride (Saline Flush) 10 ml FLUSH ASDIRECTED PRN PRN Reason: Keep Vein Open Discontinued Medications Albuterol/Ipratropium (Duoneb 3.0-0.5 Mg/3 Ml) 3 ml NEB ONETIME ONE Stop: 09/06/18 13:23 Last Admin: 09/06/18 13:39 Dose: 3 ml Albuterol/Ipratropium (Duoneb 3.0-0.5 Mg/3 Ml) 3 ml NEB Q4HRRT [facility] Last Admin: 09/07/18 14:20 Dose: 3 ml Ceftriaxone Sodium (Rocephin) 1 gm IM Q24H [facility] Last Admin: 09/06/18 20:50 Dose: Not Given Furosemide (Lasix) 40 mg IVPUSH NOW ONE Stop: 09/06/18 14:16 Last Admin: 09/06/18 14:37 Dose: 40 mg Sodium Chloride (Normal Saline) 100 mls @ 60 mls/hr IV ASDIRECTED [facility] Last Admin: 09/06/18 14:26 Dose: 60 mls/hr Sodium Chloride (Normal Saline) 1,000 mls @ 100 mls/hr IV ASDIRECTED [facility] Last Admin: 09/06/18 14:36 Dose: 100 mls/hr Ceftriaxone Sodium 1 gm/ (Sodium Chloride) 100 mls @ 200 mls/hr IV Q24H [facility] Last Admin: 09/07/18 19:33 Dose: 200 mls/hr Sodium Chloride (Normal Saline) 1,000 mls @ 50 mls/hr IV ASDIRECTED [facility] Last Admin: 09/07/18 17:47 Dose: 50 mls/hr Magnesium Sulfate 2 gm/ Premix 50 mls @ 25 mls/hr IV ONETIME ONE Stop: 09/07/18 09:16 Last Admin: 09/07/18 07:44 Dose: 25 mls/hr Iohexol (Omnipaque) 75 ml IVPUSH ONETIME ONE Stop: 09/06/18 14:07 Last Admin: 09/06/18 14:26 Dose: 75 ml Methylprednisolone Sodium Succinate (Solu-Medrol) 60 mg IVPUSH Q6H [facility] Last Admin: 09/08/18 11:34 Dose: 60 mg Pneumococcal Polyvalent Vaccine (Pneumovax 23) 0.5 ml IM .ONCE ONE Stop: 09/06/18 17:49 Last Admin: 09/06/18 19:45 Dose: Not Given Sodium Chloride (Saline Flush) 10 ml FLUSH ASDIRECTED PRN PRN Reason: Keep Vein Open Last Admin: 09/06/18 13:59 Dose: 10 ml Sodium Chloride (Saline Flush) 10 ml FLUSH ONETIME ONE Stop: 09/06/18 14:07 Last Admin: 09/06/18 14:26 Dose: 10 ml - Exam Quality Assessment: Supplemental Oxygen General: Alert, Oriented HEENT: Pupils Equal, Pupils Reactive Neck: Supple Lungs: Decreased Breath Sounds, Other (Subtly increased respiratory rate) Cardiovascular: Regular Rate, Regular Rhythm GI/Abdominal Exam: Normal Bowel Sounds, Soft, Non-Tender, No Distention Extremities: Normal Inspection, Pedal Edema - Problem List & Annotations (1) Respiratory failure with hypoxia and hypercapnia SNOMED Code(s): 99446144 Code(s): J96.91 - RESPIRATORY FAILURE, UNSPECIFIED WITH HYPOXIA; J96.92 - RESPIRATORY FAILURE, UNSPECIFIED WITH HYPERCAPNIA Status: Acute Current Visit: Yes (2) Respiratory acidosis SNOMED Code(s): 23405691 Code(s): E87.2 - ACIDOSIS Status: Acute Current Visit: Yes (3) HTN (hypertension) SNOMED Code(s): 93954638 Code(s): I10 - ESSENTIAL (PRIMARY) HYPERTENSION Status: Acute Current Visit: Yes (4) CHF (congestive heart failure) SNOMED Code(s): 74148836 Code(s): I50.9 - HEART FAILURE, UNSPECIFIED Status: Acute Current Visit: Yes (5) COPD exacerbation SNOMED Code(s): 551624012 Code(s): J44.1 - CHRONIC OBSTRUCTIVE PULMONARY DISEASE W (ACUTE) EXACERBATION Status: Acute Current Visit: Yes (6) Polycythemia SNOMED Code(s): 448422694 Code(s): D75.1 - SECONDARY POLYCYTHEMIA Status: Acute Current Visit: Yes - Problem List Review Problem List Initiated/Reviewed/Updated: Yes - My Orders Last 24 Hours: My Active Orders 09/08/18 09:12 PT Evaluation and Treatment [CONS] Routine 09/08/18 09:13 OT Evaluation and Treatment [CONS] Routine 09/08/18 09:23 Sodium Chloride 0.9% [Saline Flush] 10 ml FLUSH ASDIRECTED PRN Convert IV to Saline Lock [OM.PC] Routine 09/08/18 13:15 guaiFENesin [Mucinex] 1,200 mg PO BID 09/08/18 20:00 predniSONE 40 mg PO WITHBREAKFAST 09/08/18 21:00 Amoxicillin/Clavulanate K [Augmentin 875 MG/125 MG] 1 tab PO Q12HR - Plan Plan:: Respiratory failure with hypoxia and hypercarbia and acute on chronic respiratory acidosis * BiPAP-respiratory to titrate * Albuterol and ipratropium bromide nebulizer every 6 hours * Albuterol nebulizer every 2 hours when necessary * Significant improvement in his blood gas on BiPAP. PH 7.38, PCO2 59.7(down from 69.2) PO2 55.0, HCO3 34.2 * repeat chest x-ray showed: Haziness within the right lung base most likely due to combination of pleural effusion and atelectasis. Atelectasis is also noted along the right minor fissure. Cardiomegaly CHF * Likely right heart failure secondary to pulmonary hypertension * Unfortunately, diuresis will be difficult secondary to his polycythemia. * CHF improved with BiPAP and in improvement in respiratory function. * Captopril 6.25 mg 3 times a day switched to lisinopril 10 mg daily * Echocardiogram: 1. left ventricular ejection fraction of 55-60%2. Normal left ventricular systolic function. 3. Mildly reduced right ventricular systolic function. 4. Right ventricular size is moderately enlarged. 5. Mildly dilated right atrium. 6. Mild to moderate tricuspid valve regurgitation. 7. Right ventricular systolic pressure is moderately elevated at 38.8 mmHg and may be underestimated. 8. The inferior vena cava is normal sized with respiratory size variation greater than 50%. 9. No regional wall motion abnormalities. 10. Large left pleural effusion. * Patient had a single episode of nonsustained ventricular tachycardia. Continue to monitor on telemetry Polycythemia * Hemoglobin has dropped from 21.5-19.5-18.2 * Follow CBC in the morning. * abdominal ultrasound: 1. 2 small hemangiomas within the liver. 2. Sludge within the gallbladder. 3. Minimal fluid next to the left kidney. 4. Small right -sided pleural effusion. * Lower extremity Dopplers were negative for DVT * Therapeutic phlebotomy unlikely secondary to the improvement in his hemoglobin * Continue normal saline 50 mL for our wall on BiPAP COPD exacerbation * See above * DC Rocephin 1 g IV every 24 hours * Augmentin 875 mg twice a day * DC Methylprednisolone 60 mg IV every 6 hours * prednisone 40 mg a day Hypertension * Captopril 6.25 mg 3 times a day --> switched to lisinopril 10 mg tonight * See above Tobaccoism Patient refusing nicotine patch Consult discharge planning: Plan discharge on Tuesday CODE STATUS: Full code
[2018-09-09] MEDS: Nicotine 21 MG/24 Hr Patch TRDERM SCH (10:22)
[2018-09-09] MEDS: Amoxicillin/Clavulanate K 875-125 MG Tab PO SCH ×2 (10:22→20:00)
[2018-09-09] MEDS: Enoxaparin 40 MG/0.4 ML Syringe SUBCUT SCH (10:28)
[2018-09-09] MEDS: guaiFENesin 600 MG Tab.ER PO SCH ×2 (10:34→20:00)
[2018-09-09] MEDS: Acetaminophen 325 MG Tab PO PRN (19:53)
[2018-09-10] MEDS: Melatonin 3 MG Tab PO PRN ×2 (00:11→20:55)
[2018-09-10] MEDS: Albuterol/Ipratropium 3.0-0.5 MG/3 ML Neb Soln NEB SCH ×4 (02:28→20:09)
[2018-09-10] MEDS: predniSONE 20 MG Tab PO SCH (09:00)
[2018-09-10] MEDS: Amoxicillin/Clavulanate K 875-125 MG Tab PO SCH ×2 (09:00→20:54)
[2018-09-10] MEDS: guaiFENesin 600 MG Tab.ER PO SCH ×2 (09:04→20:54)
[2018-09-10] MEDS: Enoxaparin 40 MG/0.4 ML Syringe SUBCUT SCH (09:04)
[2018-09-10] MEDS: Nicotine 21 MG/24 Hr Patch TRDERM SCH (09:05)
--- NOTE | 2018-09-10 13:07 | PCM.PN ---
- General Info Date of Service: 09/10/18 Admission Dx/Problem (Free Text): Admission Diagnosis/Problem Admission Diagnosis/Problem Exacerbation of chronic obstructive pulmonary disease Subjective Update: Patient tolerated his BiPAP overnight. He had a significant improvement in his BNP trapping from approximate 5000 to approximately 2400. Blood gas improved just marginally to a pH of 7.33. He continues to receive DuoNeb every 4 hours. Hemoglobin has decreased 19.5. He continues on 50 mL per hour of normal saline July 09, 2018 Patient continues to do well. Continued improvement and is only on 3 L nasal cannula. He tolerated BiPAP until approximately 4:00 in the morning. Echocardiogram returned showing 1. left ventricular ejection fraction of 55-60% 2. Normal left ventricular systolic function. 3. Mildly reduced right ventricular systolic function. 4. Right ventricular size is moderately enlarged. 5. Mildly dilated right atrium. 6. Mild to moderate tricuspid valve regurgitation. 7. Right ventricular systolic pressure is moderately elevated at 38.8 mmHg and may be underestimated. 8. The inferior vena cava is normal sized with respiratory size variation greater than 50%. 9. No regional wall motion abnormalities. 10. Large left pleural effusion. July 10, 2018 Patient continues to improve. He continues on 3 L nasal cannula. Patient still has some mild tachypnea. Chest x-ray showed no significant changes from previous and there was no left pleural effusion as was seen on the echo. Patient did have a nonsustained episode of V. tach early this morning. July 11, 2018 Patient had a difficult night last night and had difficulty sleeping. Patient was started on nicotine patch yesterday. He did have a run of asymptomatic nonsustained ventricular tachycardia this morning. He also had a episode of chest pain at 2:30 this morning. ECG was performed and troponins. ECG showed normal sinus rhythm with ventricular rate of 78 bpm. Right axis deviation. T- wave inversion in the inferior and anterolateral leads. Patient states generally he is feeling better. - Review of Systems General: Reports: No Symptoms. Denies: Fever, Fatigue HEENT: Reports: No Symptoms Pulmonary: Reports: Shortness of Breath, Cough, Sputum Cardiovascular: Reports: Chest Pain, Dyspnea on Exertion, Edema. Denies: Palpitations Musculoskeletal: Reports: No Symptoms - Patient Data Vitals - Most Recent: Last Vital Signs Temp 97.8 F 09/10/18 08:06 Pulse 80 09/10/18 02:59 Resp 20 09/10/18 08:06 BP 119/86 09/10/18 10:59 Pulse Ox 90 L 09/10/18 09:00 Weight - Most Recent: 177 lb 6.4 oz I&O - Last 24 Hours: Intake & Output 09/09/18 09/10/18 09/10/18 22:59 06:59 14:59 Intake Total 1540 650 240 Output Total 1475 1200 Balance 65 -550 240 Lab Results Last 24 Hours: Laboratory Results - last 24 hr 09/10/18 09/10/18 09/10/18 Range/Units 02:55 05:05 12:13 WBC (4.23-9.07) K/mm3 RBC (4.63-6.08) M/mm3 Hgb (13.7-17.5) gm/L Hct (40.1-51.0) % MCV (79.0-92.2) fl MCH (25.7-32.2) pg MCHC (32.2-35.5) g/dl RDW Std Deviation (35.1-43.9) fL Plt Count (163-337) K/mm3 MPV (9.4-12.3) fl Neut % (Auto) (34.0-67.9) % Lymph % (Auto) (21.8-53.1) % [place] % (Auto) (5.3-12.2) % Eos % (Auto) (0.8-7.0) Baso % (Auto) (0.1-1.2) % Neut # (Auto) (1.78-5.38) K/mm3 Lymph # (Auto) (1.32-3.57) K/mm3 [place] # (Auto) (0.30-0.82) K/mm3 Eos # (Auto) (0.04-0.54) K/mm3 Baso # (Auto) (0.01-0.08) K/mm3 Manual Slide Review Sodium 140 (136-145) mEq/L Potassium 4.6 (3.5-5.1) mEq/L Chloride 104 (98-107) mEq/L Carbon Dioxide 33 H (21-32) mEq/L Anion Gap 7.6 (5-15) BUN 19 H (7-18) mg/dL Creatinine 0.8 (0.7-1.3) mg/dL Est Cr Clr Drug Dosing 95.35 mL/min Estimated GFR (MDRD) > 60 (>60) mL/min BUN/Creatinine Ratio 23.8 H (14-18) Glucose 102 (74-106) mg/dL Calcium 8.6 (8.5-10.1) mg/dL Magnesium 2.1 (1.8-2.4) mg/dl Total Bilirubin 0.7 (0.2-1.0) mg/dL AST 51 H (15-37) U/L ALT 52 (16-63) U/L Alkaline Phosphatase 63 (46-116) U/L Troponin I 0.028 < 0.017 < 0.017 (0.00-0.056) ng/mL Total Protein 5.6 L (6.4-8.2) g/dl Albumin 2.9 L (3.4-5.0) g/dl Globulin 2.7 gm/dL Albumin/Globulin Ratio 1.1 (1-2) 09/10/18 Range/Units 12:13 WBC 14.14 H (4.23-9.07) K/mm3 RBC 5.60 (4.63-6.08) M/mm3 Hgb 18.8 H (13.7-17.5) gm/L Hct 56.7 H (40.1-51.0) % MCV 101.3 H (79.0-92.2) fl MCH 33.6 H (25.7-32.2) pg MCHC 33.2 (32.2-35.5) g/dl RDW Std Deviation 59.3 H (35.1-43.9) fL Plt Count 138 L (163-337) K/mm3 MPV 10.5 (9.4-12.3) fl Neut % (Auto) 76.0 H (34.0-67.9) % Lymph % (Auto) 12.1 L (21.8-53.1) % [place] % (Auto) 11.5 (5.3-12.2) % Eos % (Auto) 0.3 L (0.8-7.0) Baso % (Auto) 0.1 (0.1-1.2) % Neut # (Auto) 10.75 H (1.78-5.38) K/mm3 Lymph # (Auto) 1.71 (1.32-3.57) K/mm3 [place] # (Auto) 1.63 H (0.30-0.82) K/mm3 Eos # (Auto) 0.04 (0.04-0.54) K/mm3 Baso # (Auto) 0.01 (0.01-0.08) K/mm3 Manual Slide Review Abnormal smear Sodium (136-145) mEq/L Potassium (3.5-5.1) mEq/L Chloride (98-107) mEq/L Carbon Dioxide (21-32) mEq/L Anion Gap (5-15) BUN (7-18) mg/dL Creatinine (0.7-1.3) mg/dL Est Cr Clr Drug Dosing mL/min Estimated GFR (MDRD) (>60) mL/min BUN/Creatinine Ratio (14-18) Glucose (74-106) mg/dL Calcium (8.5-10.1) mg/dL Magnesium (1.8-2.4) mg/dl Total Bilirubin (0.2-1.0) mg/dL AST (15-37) U/L ALT (16-63) U/L Alkaline Phosphatase (46-116) U/L Troponin I (0.00-0.056) ng/mL Total Protein (6.4-8.2) g/dl Albumin (3.4-5.0) g/dl Globulin gm/dL Albumin/Globulin Ratio (1-2) Med Orders - Current: Current Medications Acetaminophen (Tylenol) 650 mg PO Q4H PRN PRN Reason: Pain Last Admin: 09/09/18 19:53 Dose: 650 mg Albuterol (Proventil Neb Soln) 2.5 mg NEB Q2H PRN PRN Reason: Dyspnea Last Admin: 09/06/18 20:05 Dose: 2.5 mg Albuterol/Ipratropium (Duoneb 3.0-0.5 Mg/3 Ml) 3 ml NEB Q6HRRT RUSTY Last Admin: 09/10/18 08:31 Dose: 3 ml Amoxicillin/Clavulanate Potassium (Augmentin 875 Mg/125 Mg) 1 tab PO Q12HR RUSTY Stop: 09/11/18 21:01 Last Admin: 09/10/18 09:00 Dose: 1 tab Enoxaparin Sodium (Lovenox) 40 mg SUBCUT DAILY [facility] Last Admin: 09/10/18 09:04 Dose: 40 mg Guaifenesin (Mucinex) 1,200 mg PO BID [facility] Lisinopril (Prinivil) 10 mg PO DAILY [facility] Melatonin (Melatonin) 6 mg PO BEDTIME PRN PRN Reason: Insomnia Last Admin: 09/10/18 00:11 Dose: 6 mg Miscellaneous Information (Remove Patch) 1 ea TRDERM DAILY [facility] Last Admin: 09/10/18 09:05 Dose: 1 ea Nicotine (Habitrol) 21 mg TRDERM DAILY [facility] Last Admin: 09/10/18 09:05 Dose: Not Given Ondansetron HCl (Zofran Odt) 4 mg PO Q4H PRN PRN Reason: nausea, able to take PO Prednisone (Prednisone) 40 mg PO WITHBREAKFAST [facility] Last Admin: 09/10/18 09:00 Dose: 40 mg Sodium Chloride (Saline Flush) 10 ml FLUSH ASDIRECTED PRN PRN Reason: Keep Vein Open Discontinued Medications Albuterol/Ipratropium (Duoneb 3.0-0.5 Mg/3 Ml) 3 ml NEB ONETIME ONE Stop: 09/06/18 13:23 Last Admin: 09/06/18 13:39 Dose: 3 ml Albuterol/Ipratropium (Duoneb 3.0-0.5 Mg/3 Ml) 3 ml NEB Q4HRRT [facility] Last Admin: 09/07/18 14:20 Dose: 3 ml Captopril (Capoten) 6.25 mg PO Q8H [facility] Last Admin: 09/10/18 10:59 Dose: 6.25 mg Ceftriaxone Sodium (Rocephin) 1 gm IM Q24H [facility] Last Admin: 09/06/18 20:50 Dose: Not Given Furosemide (Lasix) 40 mg IVPUSH NOW ONE Stop: 09/06/18 14:16 Last Admin: 09/06/18 14:37 Dose: 40 mg Guaifenesin (Mucinex) 1,200 mg PO BID [facility] Last Admin: 09/10/18 09:04 Dose: 1,200 mg Sodium Chloride (Normal Saline) 100 mls @ 60 mls/hr IV ASDIRECTED [facility] Last Admin: 09/06/18 14:26 Dose: 60 mls/hr Sodium Chloride (Normal Saline) 1,000 mls @ 100 mls/hr IV ASDIRECTED [facility] Last Admin: 09/06/18 14:36 Dose: 100 mls/hr Ceftriaxone Sodium 1 gm/ (Sodium Chloride) 100 mls @ 200 mls/hr IV Q24H [facility] Last Admin: 09/07/18 19:33 Dose: 200 mls/hr Sodium Chloride (Normal Saline) 1,000 mls @ 50 mls/hr IV ASDIRECTED [facility] Last Admin: 09/07/18 17:47 Dose: 50 mls/hr Magnesium Sulfate 2 gm/ Premix 50 mls @ 25 mls/hr IV ONETIME ONE Stop: 09/07/18 09:16 Last Admin: 09/07/18 07:44 Dose: 25 mls/hr Iohexol (Omnipaque) 75 ml IVPUSH ONETIME ONE Stop: 09/06/18 14:07 Last Admin: 09/06/18 14:26 Dose: 75 ml Methylprednisolone Sodium Succinate (Solu-Medrol) 60 mg IVPUSH Q6H [facility] Last Admin: 09/08/18 11:34 Dose: 60 mg Pneumococcal Polyvalent Vaccine (Pneumovax 23) 0.5 ml IM .ONCE ONE Stop: 09/06/18 17:49 Last Admin: 09/06/18 19:45 Dose: Not Given Sodium Chloride (Saline Flush) 10 ml FLUSH ASDIRECTED PRN PRN Reason: Keep Vein Open Last Admin: 09/06/18 13:59 Dose: 10 ml Sodium Chloride (Saline Flush) 10 ml FLUSH ONETIME ONE Stop: 09/06/18 14:07 Last Admin: 09/06/18 14:26 Dose: 10 ml - Exam Quality Assessment: Supplemental Oxygen General: Alert, Oriented HEENT: Pupils Equal Neck: Supple Lungs: Decreased Breath Sounds, Wheezing, Other (Mild increased respiratory effort and rate) Cardiovascular: Regular Rate, Regular Rhythm, No Murmurs GI/Abdominal Exam: Normal Bowel Sounds, No Distention Extremities: Pedal Edema Neurological: No New Focal Deficit Psy/Mental Status: Alert, Normal Affect - Problem List & Annotations (1) Respiratory failure with hypoxia and hypercapnia SNOMED Code(s): 16285645 Code(s): J96.91 - RESPIRATORY FAILURE, UNSPECIFIED WITH HYPOXIA; J96.92 - RESPIRATORY FAILURE, UNSPECIFIED WITH HYPERCAPNIA Status: Acute Current Visit: Yes (2) Respiratory acidosis SNOMED Code(s): 25396824 Code(s): E87.2 - ACIDOSIS Status: Acute Current Visit: Yes (3) HTN (hypertension) SNOMED Code(s): 98256608 Code(s): I10 - ESSENTIAL (PRIMARY) HYPERTENSION Status: Acute Current Visit: Yes (4) CHF (congestive heart failure) SNOMED Code(s): 74287548 Code(s): I50.9 - HEART FAILURE, UNSPECIFIED Status: Acute Current Visit: Yes (5) COPD exacerbation SNOMED Code(s): 052667553 Code(s): J44.1 - CHRONIC OBSTRUCTIVE PULMONARY DISEASE W (ACUTE) EXACERBATION Status: Acute Current Visit: Yes (6) Polycythemia SNOMED Code(s): 831407802 Code(s): D75.1 - SECONDARY POLYCYTHEMIA Status: Acute Current Visit: Yes - Problem List Review Problem List Initiated/Reviewed/Updated: Yes - My Orders Last 24 Hours: My Active Orders 09/10/18 02:41 EKG 12 Lead [EK] Routine 09/10/18 02:42 EKG Documentation Completion [RC] ASDIRECTED 09/10/18 19:00 Lisinopril [Prinivil] 10 mg PO DAILY 09/10/18 21:00 Overnight Pulse Oximetry [RC] Click to Edit [email or web address] [Mucinex] 1,200 mg PO BID 09/11/18 05:11 CBC WITH AUTO DIFF [HEME] AM CMP [COMPREHENSIVE METABOLIC PN,CMP] [CHEM] AM MAGNESIUM [CHEM] AM - Plan Plan:: Respiratory failure with hypoxia and hypercarbia and acute on chronic respiratory acidosis * Patient will get an overnight oximetry and titration. * Albuterol and ipratropium bromide nebulizer every 6 hours * Albuterol nebulizer every 2 hours when necessary * Significant improvement in his blood gas on BiPAP. PH 7.38, PCO2 59.7(down from 69.2) PO2 55.0, HCO3 34.2 * repeat chest x-ray showed: Haziness within the right lung base most likely due to combination of pleural effusion and atelectasis. Atelectasis is also noted along the right minor fissure. Cardiomegaly CHF * Likely right heart failure secondary to pulmonary hypertension * Unfortunately, diuresis will be difficult secondary to his polycythemia. * CHF improved with BiPAP and in improvement in respiratory function. * Captopril 6.25 mg 3 times a day switched to lisinopril 10 mg daily * Echocardiogram: 1. left ventricular ejection fraction of 55-60%2. Normal left ventricular systolic function. 3. Mildly reduced right ventricular systolic function. 4. Right ventricular size is moderately enlarged. 5. Mildly dilated right atrium. 6. Mild to moderate tricuspid valve regurgitation. 7. Right ventricular systolic pressure is moderately elevated at 38.8 mmHg and may be underestimated. 8. The inferior vena cava is normal sized with respiratory size variation greater than 50%. 9. No regional wall motion abnormalities. 10. Large left pleural effusion. * Patient had a single episode of nonsustained ventricular tachycardia. Continue to monitor on telemetry Polycythemia * Hemoglobin has dropped from 21.5-19.5-18.2-18.8 * Follow CBC in the morning. * abdominal ultrasound: 1. 2 small hemangiomas within the liver. 2. Sludge within the gallbladder. 3. Minimal fluid next to the left kidney. 4. Small right -sided pleural effusion. * Lower extremity Dopplers were negative for DVT * Therapeutic phlebotomy unlikely secondary to the improvement in his hemoglobin * Continue normal saline 50 mL for our wall on BiPAP COPD exacerbation * See above * DC Rocephin 1 g IV every 24 hours * Augmentin 875 mg twice a day * DC Methylprednisolone 60 mg IV every 6 hours * prednisone 40 mg a day * Patient has a leukocytosis this morning of 14,000. This is likely secondary to steroids. We will repeat CBC in the morning. Chest pain * Likely secondary to pulmonary disease * ECG is consistent with ischemia. * Patient should have cardiac stress testing as an outpatient. He is still too symptomatic from his COPD exacerbation to do it here. * Patient is not a candidate for beta lopez therapy during his acute episode of COPD and heart failure. Asymptomatic nonsustained ventricular tachycardia * Continue to monitor and get outpatient stress test. * Not a candidate for beta lopez at this time. Hypertension * Captopril 6.25 mg 3 times a day --> switched to lisinopril 10 mg tonight * See above Tobaccoism Patient refusing nicotine patch Consult discharge planning: Plan discharge on Tuesday CODE STATUS: Full code
[2018-09-10] MEDS: Lisinopril 10 MG Tab PO SCH (18:34)
[2018-09-11] MEDS: Albuterol/Ipratropium 3.0-0.5 MG/3 ML Neb Soln NEB SCH ×2 (03:20→08:26)
[2018-09-11] MEDS: predniSONE 20 MG Tab PO SCH (07:28)
[2018-09-11] MEDS: Lisinopril 10 MG Tab PO SCH (08:05)
[2018-09-11] MEDS: Amoxicillin/Clavulanate K 875-125 MG Tab PO SCH (08:05)
[2018-09-11] MEDS: Enoxaparin 40 MG/0.4 ML Syringe SUBCUT SCH (08:06)
[2018-09-11] MEDS: Nicotine 21 MG/24 Hr Patch TRDERM SCH (08:07)
[2018-09-11] MEDS: guaiFENesin 600 MG Tab.ER PO SCH (08:07)
--- NOTE | 2018-09-11 14:18 | PCM.DCSUM1 ---
Discharge Summary - Hospital Course HPI Initial Comments: 58-year-old male presents to the emergency room with worsening shortness of breath, dyspnea on exertion, and lower extremity edema. Patient states over the past 6 weeks he has had worsening shortness of breath and had difficulty even walking across the room to go to the bathroom. 2 weeks ago he developed right lower extremity edema and then it worsened to the left over the last 2 days. He has orthopnea but denies PND. He states that this episode really started back at [place]. He complains of productive light brown sputum. He denies any fever or chills. Denies any chest pain. He has an approximate [id number] history of tobacco. He lives in a camper. He drinks alcohol from one beer to 6 beers a day. Last alcohol intake was 2 days ago. He is seen by Dr. Zambrano, but last visit was over 2 years ago. He states he has been getting albuterol nebulizer solution and uses it in the evening. He uses Primatene and albuterol HFA for rescue. In the emergency room patient was given a nebulizer of albuterol and ipratropium bromide. Patient did seem to have some improvement. Lab work was performed and he was found to be severely polycythemic with a hemoglobin of 21.5. D-dimer was elevated at 1.67. Creatinine was 1.3 and BUN was 21. Otherwise normal electrolytes. AST was 38, ALT 46, alkaline phosphatase of 104, total bilirubin 1.0, troponin less than 0.017. BNP was elevated at 5029. Total iron binding capacity was slightly elevated at 443 with percent saturation of 16. ABG: PH 7.31, PCO2 68.6, PO2 54.0, HCO3 33.8, base excess 3.9 on 4 L nasal cannula Patient was initially given Lasix secondary to the elevated BNP, then he was started on normal saline at the suggestion of hematology. Concern was that if he does not have a decrease in his hemoglobin with adequate fluids he could have thrombotic complications. If hemoglobin does not decrease he may need phlebotomy per hematology. Brief History: Patient tolerated his BiPAP overnight. He had a significant improvement in his BNP trapping from approximate 5000 to approximately 2400. Blood gas improved just marginally to a pH of 7.33. He continues to receive DuoNeb every 4 hours. Hemoglobin has decreased 19.5. He continues on 50 mL per hour of normal saline. July 09, 2018. Patient continues to do well. Continued improvement and is only on 3 L nasal cannula. He tolerated BiPAP until approximately 4:00 in the morning. Echocardiogram returned showing 1. left ventricular ejection fraction of 55-60%2. Normal left ventricular systolic function. 3. Mildly reduced right ventricular systolic function. 4. Right ventricular size is moderately enlarged. 5. Mildly dilated right atrium. 6. Mild to moderate tricuspid valve regurgitation. 7. Right ventricular systolic pressure is moderately elevated at 38.8 mmHg and may be underestimated. 8. The inferior vena cava is normal sized with respiratory size variation greater than 50%. 9. No regional wall motion abnormalities. 10. Large left pleural effusion. July 10, 2018. Patient continues to improve. He continues on 3 L nasal cannula. Patient still has some mild tachypnea. Chest x-ray showed no significant changes from previous and there was no left pleural effusion as was seen on the echo. Patient did have a nonsustained episode of V. tach early this morning. July 11, 2018. Patient had a difficult night last night and had difficulty sleeping. Patient was started on nicotine patch yesterday. He did have a run of asymptomatic nonsustained ventricular tachycardia this morning. He also had a episode of chest pain at 2:30 this morning. ECG was performed and troponins. ECG showed normal sinus rhythm with ventricular rate of 78 bpm. Right axis deviation. T-wave inversion in the inferior and anterolateral leads. Patient states generally he is feeling better. Diagnosis: Stroke: No - Discharge Data Discharge Date: 09/11/18 Discharge Disposition: Home, Self-Care 01 Condition: Good - Discharge Diagnosis/Problem(s) (1) Respiratory failure with hypoxia and hypercapnia SNOMED Code(s): 74341098 ICD Code: J96.91 - RESPIRATORY FAILURE, UNSPECIFIED WITH HYPOXIA; J96.92 - RESPIRATORY FAILURE, UNSPECIFIED WITH HYPERCAPNIA Status: Acute Current Visit: Yes (2) Respiratory acidosis SNOMED Code(s): 92417876 ICD Code: E87.2 - ACIDOSIS Status: Acute Current Visit: Yes (3) HTN (hypertension) SNOMED Code(s): 10750115 ICD Code: I10 - ESSENTIAL (PRIMARY) HYPERTENSION Status: Acute Current Visit: Yes (4) CHF (congestive heart failure) SNOMED Code(s): 23848176 ICD Code: I50.9 - HEART FAILURE, UNSPECIFIED Status: Acute Current Visit : Yes (5) COPD exacerbation SNOMED Code(s): 077394742 ICD Code: J44.1 - CHRONIC OBSTRUCTIVE PULMONARY DISEASE W (ACUTE) EXACERBATION Status: Acute Current Visit: Yes (6) Polycythemia SNOMED Code(s): 131627703 ICD Code: D75.1 - SECONDARY POLYCYTHEMIA Status: Acute Current Visit: Yes - Patient Summary/Data Consults: Consultations 09/08/18 09:12 PT Evaluation and Treatment [CONS] Routine 09/08/18 09:13 OT Evaluation and Treatment [CONS] Routine - Patient Instructions Diet: Heart Healthy Diet Activity: As Tolerated Driving: May Drive Today Showering/Bathing: August Shower Notify Provider of: Fever - Discharge Plan *PRESCRIPTION DRUG MONITORING PROGRAM REVIEWED*: No *COPY OF PRESCRIPTION DRUG MONITORING REPORT IN PATIENT LAKSHMI: No Prescriptions/Med Rec: Amoxicillin/Clavulanate K [Augmentin 875-125 MG] 1 tab PO Q12HR #4 tablet Albuterol [Proventil Neb Soln] 2.5 mg NEB Q2H PRN #100 neb PRN Reason: Dyspnea Albuterol/Ipratropium [DuoNeb 3.0-0.5 MG/3 ML] 3 ml NEB Q6HRRT PRN #100 neb PRN Reason: Dyspnea Budesonide/Formoterol [Symbicort 160-4.5 MCG] 2 puff INH BID #1 inhaler Lisinopril [Prinivil] 10 mg PO DAILY #30 tablet Nicotine [Habitrol] 21 mg TRDERM DAILY #30 patch predniSONE 40 mg PO WITHBREAKFAST 2 Days #4 tablet Home Medications: Home Meds Albuterol Sulfate [Proair Hfa] 2 puff INH 6XDAY PRN 09/06/18 [History] Acetaminophen [Tylenol] 650 mg PO Q4H PRN tablet 09/11/18 [Rx] Albuterol [Proventil Neb Soln] 2.5 mg NEB Q2H PRN #100 neb 09/11/18 [Rx] Albuterol/Ipratropium [DuoNeb 3.0-0.5 MG/3 ML] 3 ml NEB Q6HRRT PRN #100 neb [Rx] Amoxicillin/Clavulanate K [Augmentin 875-125 MG] 1 tab PO Q12HR #4 tablet [Rx] Budesonide/Formoterol [Symbicort 160-4.5 MCG] 2 puff INH BID #1 inhaler [Rx] Lisinopril [Prinivil] 10 mg PO DAILY #30 tablet 09/11/18 [Rx] Nicotine [Habitrol] 21 mg TRDERM DAILY #30 patch 09/11/18 [Rx] guaiFENesin [Mucinex] 1,200 mg PO BID tab.er 09/11/18 [Rx] predniSONE 40 mg PO WITHBREAKFAST 2 Days #4 tablet 09/11/18 [Rx] Patient Handouts: Chronic Obstructive Pulmonary Disease Exacerbation, Chronic Obstructive Pulmonary Disease, Steps to Quit Smoking Forms: ED Department Discharge Referrals: Ba Ortiz MD [Physician] - - Discharge Summary/Plan Comment DC Time >30 min.: Yes Discharge Summary/Plan Comment: Respiratory failure with hypoxia and hypercarbia and acute on chronic respiratory acidosis * He will need 24-hour oxygen * Albuterol and ipratropium bromide nebulizer every 6 hours as needed at home * Albuterol nebulizer every 2 hours when necessary * Significant improvement in his blood gas on BiPAP. PH 7.38, PCO2 59.7(down from 69.2) PO2 55.0, HCO3 34.2 * repeat chest x-ray showed: Haziness within the right lung base most likely due to combination of pleural effusion and atelectasis. Atelectasis is also noted along the right minor fissure. Cardiomegaly CHF * Likely right heart failure secondary to pulmonary hypertension * Unfortunately, diuresis will be difficult secondary to his polycythemia. * CHF improved with BiPAP and in improvement in respiratory function. He does not need BiPAP at home. * Lisinopril 10 mg daily * Echocardiogram: 1. left ventricular ejection fraction of 55-60%2. Normal left ventricular systolic function. 3. Mildly reduced right ventricular systolic function. 4. Right ventricular size is moderately enlarged. 5. Mildly dilated right atrium. 6. Mild to moderate tricuspid valve regurgitation. 7. Right ventricular systolic pressure is moderately elevated at 38.8 mmHg and may be underestimated. 8. The inferior vena cava is normal sized with respiratory size variation greater than 50%. 9. No regional wall motion abnormalities. 10. Large left pleural effusion. * Patient had a single episode of nonsustained ventricular tachycardia. Continue to monitor on telemetry Polycythemia * Hemoglobin has dropped from 21.5-19.5-18.2-18.8 - 19.3 * Follow CBC as an outpatient and may need therapeutic phlebotomy. Hemoglobin should improve with treatment of his chronic hypoxia * abdominal ultrasound: 1. 2 small hemangiomas within the liver. 2. Sludge within the gallbladder. 3. Minimal fluid next to the left kidney. 4. Small right -sided pleural effusion. * Lower extremity Dopplers were negative for DVT COPD exacerbation * Discharged on Symbicort 2 puffs twice a day * Augmentin 875 mg twice a day for 2 days after discharge * prednisone 40 mg a day for 2 days after discharge Chest pain * Likely secondary to pulmonary disease * ECG is consistent with ischemia. * Patient should have cardiac stress testing as an outpatient. He is still too symptomatic from his COPD exacerbation to do it here. * Patient is not a candidate for beta lopez therapy during his acute episode of COPD and heart failure, but maybe in the future Asymptomatic nonsustained ventricular tachycardia * Continue to monitor and get outpatient stress test. * Not a candidate for beta lopez at this time. Hypertension * lisinopril 10 mg daily * See above Tobaccoism * Discharging with nicotine patch * Patient counseled to not use oxygen and smoke. He understands the risk posed by the increased oxygen around his face and that he could have significant lazo and even . - General Info Date of Service: 09/11/18 Admission Dx/Problem (Free Text: Admission Diagnosis/Problem Admission Diagnosis/Problem Exacerbation of chronic obstructive pulmonary disease Subjective Update: Patient is generally doing well. He continues to need 2 L at rest of O2 and up to 5 L with activity. Patient's hemoglobin has increased back up to 19. He is ready for discharge today. Functional Status: Reports: Tolerating Diet, Incentive Spirometry - Review of Systems General: Reports: No Symptoms HEENT: Reports: No Symptoms Pulmonary: Reports: Shortness of Breath, Cough. Denies: Hemoptysis Cardiovascular: Reports: No Symptoms. Denies: Chest Pain, Palpitations Gastrointestinal: Reports: No Symptoms. Denies: Abdominal Pain, Constipation Psychiatric: Reports: No Symptoms - Patient Data Vitals - Most Recent: Last Vital Signs Temp 98.0 F 09/11/18 07:39 Pulse 80 09/10/18 02:59 Resp 17 09/11/18 07:39 BP 121/95 H 09/11/18 08:05 Pulse Ox 92 L 09/11/18 08:26 Weight - Most Recent: 176 lb 14.4 oz I&O - Last 24 hours: Intake & Output 09/10/18 09/11/18 09/11/18 22:59 06:59 14:59 Intake Total 1160 400 320 Output Total 1775 1600 1200 Balance -294 -4258 -037 Lab Results - Last 24 hrs: Laboratory Results - last 24 hr 09/07/18 09/11/18 09/11/18 Range/Units 06:00 05:34 05:34 WBC 11.50 H (4.23-9.07) K/mm3 RBC 5.84 (4.63-6.08) M/mm3 Hgb 19.3 H (13.7-17.5) gm/L Hct 59.3 H (40.1-51.0) % MCV 101.5 H (79.0-92.2) fl MCH 33.0 H (25.7-32.2) pg MCHC 32.5 (32.2-35.5) g/dl RDW Std Deviation 58.1 H (35.1-43.9) fL Plt Count 119 L (163-337) K/mm3 MPV 11.5 (9.4-12.3) fl Neut % (Auto) 73.6 H (34.0-67.9) % Lymph % (Auto) 15.4 L (21.8-53.1) % [place] % (Auto) 10.6 (5.3-12.2) % Eos % (Auto) 0.3 L (0.8-7.0) Baso % (Auto) 0.1 (0.1-1.2) % Neut # (Auto) 8.47 H (1.78-5.38) K/mm3 Lymph # (Auto) 1.77 (1.32-3.57) K/mm3 [place] # (Auto) 1.22 H (0.30-0.82) K/mm3 Eos # (Auto) 0.03 L (0.04-0.54) K/mm3 Baso # (Auto) 0.01 (0.01-0.08) K/mm3 Sodium 141 (136-145) mEq/L Potassium 4.4 (3.5-5.1) mEq/L Chloride 104 (98-107) mEq/L Carbon Dioxide 37 H (21-32) mEq/L Anion Gap 4.4 L (5-15) BUN 18 (7-18) mg/dL Creatinine 0.8 (0.7-1.3) mg/dL Est Cr Clr Drug Dosing 95.35 mL/min Estimated GFR (MDRD) > 60 (>60) mL/min BUN/Creatinine Ratio 22.5 H (14-18) Glucose 90 (74-106) mg/dL Calcium 8.9 (8.5-10.1) mg/dL Magnesium 1.9 (1.8-2.4) mg/dl Erythropoietin 7.8 (2.6-18.5) mIU/mL Total Bilirubin 0.8 (0.2-1.0) mg/dL AST 37 (15-37) U/L ALT 54 (16-63) U/L Alkaline Phosphatase 60 (46-116) U/L Total Protein 6.0 L (6.4-8.2) g/dl Albumin 3.2 L (3.4-5.0) g/dl Globulin 2.8 gm/dL Albumin/Globulin Ratio 1.1 (1-2) Med Orders - Current: Current Medications Acetaminophen (Tylenol) 650 mg PO Q4H PRN PRN Reason: Pain Last Admin: 09/09/18 19:53 Dose: 650 mg Albuterol (Proventil Neb Soln) 2.5 mg NEB Q2H PRN PRN Reason: Dyspnea Last Admin: 09/06/18 20:05 Dose: 2.5 mg Albuterol/Ipratropium (Duoneb 3.0-0.5 Mg/3 Ml) 3 ml NEB Q6HRRT [facility] Last Admin: 09/11/18 08:26 Dose: 3 ml Amoxicillin/Clavulanate Potassium (Augmentin 875 Mg/125 Mg) 1 tab PO Q12HR [facility] Stop: 09/11/18 21:01 Last Admin: 09/11/18 08:05 Dose: 1 tab Enoxaparin Sodium (Lovenox) 40 mg SUBCUT DAILY [facility] Last Admin: 09/11/18 08:06 Dose: 40 mg Guaifenesin (Mucinex) 1,200 mg PO BID [facility] Last Admin: 09/11/18 08:07 Dose: 1,200 mg Lisinopril (Prinivil) 10 mg PO DAILY [facility] Last Admin: 09/11/18 08:05 Dose: 10 mg Melatonin (Melatonin) 6 mg PO BEDTIME PRN PRN Reason: Insomnia Last Admin: 09/10/18 20:55 Dose: 6 mg Miscellaneous Information (Remove Patch) 1 ea TRDERM DAILY [facility] Last Admin: 09/11/18 08:11 Dose: Not Given Nicotine (Habitrol) 21 mg TRDERM DAILY [facility] Last Admin: 09/11/18 08:07 Dose: Not Given Ondansetron HCl (Zofran Odt) 4 mg PO Q4H PRN PRN Reason: nausea, able to take PO Prednisone (Prednisone) 40 mg PO WITHBREAKFAST [facility] Last Admin: 09/11/18 07:28 Dose: 40 mg Sodium Chloride (Saline Flush) 10 ml FLUSH ASDIRECTED PRN PRN Reason: Keep Vein Open Discontinued Medications Albuterol/Ipratropium (Duoneb 3.0-0.5 Mg/3 Ml) 3 ml NEB ONETIME ONE Stop: 09/06/18 13:23 Last Admin: 09/06/18 13:39 Dose: 3 ml Albuterol/Ipratropium (Duoneb 3.0-0.5 Mg/3 Ml) 3 ml NEB Q4HRRT [facility] Last Admin: 09/07/18 14:20 Dose: 3 ml Captopril (Capoten) 6.25 mg PO Q8H [facility] Last Admin: 09/10/18 10:59 Dose: 6.25 mg Ceftriaxone Sodium (Rocephin) 1 gm IM Q24H [facility] Last Admin: 09/06/18 20:50 Dose: Not Given Furosemide (Lasix) 40 mg IVPUSH NOW ONE Stop: 09/06/18 14:16 Last Admin: 09/06/18 14:37 Dose: 40 mg Guaifenesin (Mucinex) 1,200 mg PO BID [facility] Last Admin: 09/10/18 09:04 Dose: 1,200 mg Sodium Chloride (Normal Saline) 100 mls @ 60 mls/hr IV ASDIRECTED [facility] Last Admin: 09/06/18 14:26 Dose: 60 mls/hr Sodium Chloride (Normal Saline) 1,000 mls @ 100 mls/hr IV ASDIRECTED [facility] Last Admin: 09/06/18 14:36 Dose: 100 mls/hr Ceftriaxone Sodium 1 gm/ (Sodium Chloride) 100 mls @ 200 mls/hr IV Q24H [facility] Last Admin: 09/07/18 19:33 Dose: 200 mls/hr Sodium Chloride (Normal Saline) 1,000 mls @ 50 mls/hr IV ASDIRECTED [facility] Last Admin: 09/07/18 17:47 Dose: 50 mls/hr Magnesium Sulfate 2 gm/ Premix 50 mls @ 25 mls/hr IV ONETIME ONE Stop: 09/07/18 09:16 Last Admin: 09/07/18 07:44 Dose: 25 mls/hr Iohexol (Omnipaque) 75 ml IVPUSH ONETIME ONE Stop: 09/06/18 14:07 Last Admin: 09/06/18 14:26 Dose: 75 ml Methylprednisolone Sodium Succinate (Solu-Medrol) 60 mg IVPUSH Q6H [facility] Last Admin: 09/08/18 11:34 Dose: 60 mg Pneumococcal Polyvalent Vaccine (Pneumovax 23) 0.5 ml IM .ONCE ONE Stop: 09/06/18 17:49 Last Admin: 09/06/18 19:45 Dose: Not Given Sodium Chloride (Saline Flush) 10 ml FLUSH ASDIRECTED PRN PRN Reason: Keep Vein Open Last Admin: 09/06/18 13:59 Dose: 10 ml Sodium Chloride (Saline Flush) 10 ml FLUSH ONETIME ONE Stop: 09/06/18 14:07 Last Admin: 09/06/18 14:26 Dose: 10 ml - Exam Quality Assessment: Reports: Supplemental Oxygen General: Reports: Alert, Oriented HEENT: Reports: Pupils Equal, Pupils Reactive Neck: Reports: Supple Lungs: Reports: Clear to Auscultation, Normal Respiratory Effort, Decreased Breath Sounds Cardiovascular: Reports: Regular Rate, Regular Rhythm GI/Abdominal Exam: Normal Bowel Sounds, Soft, Non-Tender, No Distention Extremities: Normal Inspection, Pedal Edema (Improved) Skin: Reports: Warm, Dry, Intact Neurological: Reports: No New Focal Deficit Psy/Mental Status: Reports: Alert, Normal Affect, Normal Mood
== END 2018-09-11 15:13 | disposition home or self-care (01) | DRG 291 ==
LOC: JD.ED 12:25 → JD.ICU 16:21
PROVIDERS: ADMIT Family Medicine; ATTEND Family Medicine
PROC: 5A09457 Assistance with Respiratory Ventilation, 24-96 Consecutive Hours, Continuous Positive Airway Pressure (ICD-10-PCS; principal; 2018-09-06)
DX: I11.0 Hypertensive heart disease with heart failure (principal); J96.91 Respiratory failure, unspecified with hypoxia; J96.92 Respiratory failure, unspecified with hypercapnia; J44.1 Chronic obstructive pulmonary disease with (acute) exacerbation; I47.2 Ventricular tachycardia; E87.2 Acidosis; I50.810 Right heart failure, unspecified; I27.20 Pulmonary hypertension, unspecified; F17.210 Nicotine dependence, cigarettes, uncomplicated; D75.1 Secondary polycythemia; G89.29 Other chronic pain; M54.2 Cervicalgia; Z79.899 Other long term (current) drug therapy
CPT/HCPCS: 36415; 36600; 71045; 71045-26; 71046; 71046-26; 71275; 71275-26; 76700; 76700-26; 80053; 82553; 82668; 82803; 83540; 83735; 83880; 84100; 84466; 84484; 85007; 85025; 85027; 85379; 85610; 93005; 93010; 93306; 93970; 93970-26; 94640; 94660; 94762; 96361; 96374; 97162-GP; 97165-GO; 97530-GO; 97530-GP; 99284; 99285-25; A9270-GY; J0696; J1650; J1940; J2920; J3475; J7030; J7040; J7620-GY; Q9967